=== PATIENT | male | born 1950 | race Caucasian/White ===

== ENCOUNTER 2018-01-23 11:10 | Inpatient (IN) | payer MEDICARE, OTHER, SELFPAY ==
[2018-01-23] VITALS (25 sets, daily range): BP systolic 120–159; BP diastolic 65–142; PULSE 99–118; RESP 13–38; TEMP 35.5–36.8; O2SAT 94–98; BMI 36.0; BMI 35.9
--- NOTE | 2018-01-23 11:30 | RAD_ITS ---
STUDY: X-RAY CHEST REASON FOR EXAM: Male, 67 years old. Cough. Extreme shortness of breath. TECHNIQUE: Single AP portable view of the chest. COMPARISON: None. FINDINGS: EKG electrodes are seen. Minimal increased markings in the right midlung most likely representing scarring. Minimal increased markings at the left lung base. There is no demonstrated pleural abnormality. There is moderate cardiac enlargement. Normal mediastinum and gilma. Normal visualized pulmonary arteries. Normal visualized aortic arch and descending thoracic aorta. Normal visualized thoracic spine. Multiple healed left rib fractures with deformity. There is no demonstrated abnormality of the visualized soft tissue structures of the upper abdomen. RAD/Chest 1 View (Portable) IMPRESSION: Cardiomegaly. No acute abnormality is seen. Electronically Signed: Osmany Gill MD at 12:35 EST Tel [phone], Service support ,
--- NOTE | 2018-01-23 11:30 | EKG12_ITS ---
Test Reason : SOB Blood Pressure : / mmHG Vent. Rate : 095 BPM Atrial Rate : 095 BPM P-R Int : 192 ms QRS Dur : 198 ms QT Int : 434 ms P-R-T Axes : 061 108 -05 degrees QTc Int : 545 ms Sinus rhythm with occasional Premature ventricular complexes Right bundle branch block T wave abnormality, consider inferior ischemia Abnormal ECG Confirmed by HAYLEY IRAHETA, CAR ([id number]), video effects editor EMMANUEL SANTOS ([id number] on 01/24/2018 2:24:38 PM Referred By: MALORIE/FRANKLIN Confirmed By:CAR HARDY MD
--- NOTE | 2018-01-23 11:37 | ED.DCSUM_ITS ---
- ER Visit Summary Date of Service: 01/23/18 Chief Complaint: Shortness of breath History of Present Illness: The patient is a 67 M with increasing shortness of breath. He was diagnosed with pneumonia about a week ago. He was prescribed Levaquin. He is not improving, and in fact he feels that his breathing is getting worse. He denies any chest pain or fevers. Denies any history of PE or heart disease. Physical Examination: Blood pressure 154/76. Heart rate 99 and respiratory rate 38. Pulse ox 95% on nasal cannula. Afebrile. Mild respiratory distress. The patient feels better sitting upright. No tripoding or pursed lip breathing. Lungs show diminished sounds throughout all [place]. Heart regular. Abdomen soft. Skin appears normal. Test Results: EKG, chest x-ray, sepsis labs pending. Emergency Department Course and Treatment: Patient was treated with aerosols, fluids, and Solu-Medrol while awaiting results. EKG showed a wide complex rhythm. Chest x-ray and labs all were fairly unremarkable. There was some delay in receiving the metabolic panel. He really had no improvement in his breathing after breathing treatments. His metabolic panel came back with a potassium of 7.9, BUN of 227, and creatinine of 23. I reevaluated the patient. It seems that the breathing treatments had narrowed his QRS complex. He was treated with calcium, insulin, dextrose, and Kayexalate. I spoke with the electronics engineering manager, the machine gunner, and hospitalist tactical air defense controller. The patient will be admitted to the ICU. We will continue to monitor. At the request of the hospitalist, ABG is pending. Treatment Plan: As above Disposition: Admission to ICU Impression: 1. Hyperkalemia 2. Acute kidney injury This note was generated with Within3ation software. It may contain incorrect words, spelling, and punctuation that were not noted in review of the chart prior to signing ED Disposition - Plan for ED Patient: Chief Complaint: Shortness of Breath
[2018-01-23] MEDS: Ipratropium/Albuterol Sulfate 3 ML AMPUL.NEB INHALATION (11:50)
[2018-01-23] MEDS: MethylPREDNISolone 125 MG/2 ML Vial IV (11:52)
[2018-01-23] MEDS: Albuterol 2.5 MG/3 ML VIAL.NEB. INHALATION (11:58)
[2018-01-23 13:05] LABS: International Normalized Ratio 1.4; Prothrombin Time (Protime)PT. 16.5 SECONDS (11.7-14.9)
[2018-01-23 13:06] LABS: Partial Thromboplast Time 34.3 Seconds (24.1-36.2)
[2018-01-23 13:09] LABS: Absolute Lymphocyte Count 0.54 X10^3/ul (0.83-4.51); Absolute Neutrophil Count 11.9 X10^3/uL (2.0-7.7); Basophil# 0.03 X10^3/uL; Basophil% 0.2 % (0-1); Hematocrit 38.6 % (40-54); Hemoglobin 13.3 g/dl (13.0-16.5); Lymphocyte # 0.54 X10^3/ul (4.0); Lymphocyte % 4.1 % (19-41); Mean Corp Hgb Conc 34.5 g/gl (32-36); Mean Corpuscular Volume 87.1 fL (80-94); Mean Platelet Vol. 9.9 fl (6.2-12.0); Monocyte# 0.46 X10^3/uL; Monocyte% 3.5 % (0-10); Neutrophil # 11.91 X10^3/uL (2.7-7.7); Neutrophil % 91.2 % (47-70); Platelet Count 329 K/mm3 (150-450); RBC Distribution Width CV 13.5 % (11.6-14.6); RBC Distribution Width SD 43.1 fl (35.1-43.9); Red Blood Count 4.43 M/mm3 (4.6-6.2); White Blood Count 13.1 K/mm3 (4.4-11.0)
[2018-01-23 13:10] LABS: Differential Indicated SCAN CRITERIA MET; POSITIVE COUNT NO; POSITIVE DIFFERENTIAL YES; POSITIVE MORPHOLOGY NO
[2018-01-23 13:15] LABS: Lactic Acid 0.8 mmol/L (0.4-2.0)
--- NOTE | 2018-01-23 13:35 | ED.RN ---
LAB CALLED RESULT OF POTASSIUM 7.9, CO2 9, BUN 227, CRE 23.4, PHYSICIAN NOTIFIED
[2018-01-23 13:36] LABS: ALB/GLOB Ratio 0.7 RATIO (0.9-2.4); AST(SGOT) 24 U/L (15-37); Alanine Aminotransfer ALT/SGPT 26 U/L (16-61); Albumin, Serum 3.2 g/dL (3.2-5.0); Alkaline Phosphatase 90 U/L (45-117); Anion Gap 30 (5-15); BUN 227 mg/dL (7-18); BUN/Creat Ratio 9.7 RATIO (10-20); Calcium,Total 8.2 mg/dL (8.5-10.1); Chloride 96 mmol/L (98-107); EST Glomerular Filtration Rate 2 mL/min (>60); Est Glom Filt Rate - Afr Amer 3 mL/min (>60); Estimated Creatinine Clearance 2.79 ml/min; Globulin 4.7 g/dL (2.2-4.2); Glucose 90 mg/dL (74-106); Potassium 7.9 mmol/L (3.5-5.1); Protein, Total 7.9 g/dL (6.4-8.2); Sodium Level 135 mmol/L (136-145)
[2018-01-23 13:43] LABS: Platelet Estimate ADEQUATE (ADEQ)
[2018-01-23 13:44] LABS: Red Cell Morphology NORM C+C NORMAL (NORM C&C)
--- NOTE | 2018-01-23 13:51 | PCM.HP.STD ---
Problem List (1) Acute retention of urine Status: Acute (2) Metabolic acidosis Status: Acute (3) JEAN (acute kidney injury) Status: Acute (4) Hyperkalemia Status: Acute History of Present Illness Date of Admission: 01/23/18 Chief Complaint: Shortness of breath - 2 weeks The patient is a 67 year old M with no significant past medical history who comes in with complaints of feeling unwell ongoing for 2 weeks. History was taken from the patient's and the patient himself. Patient started feeling unwell 2 weeks prior, was diagnosed with UTI and started on Levaquin. He followed up 6 days ago to the urgent care center, and was diagnosed with pneumonia and continued on Levaquin. Patient went to see his white mixing operator, Dr. Vielka Nails with complaints of shortness of breath and was asked to come to the ED. In the ED, his vitals show temperature of 97F, blood pressure 154/76, respiratory rate was 38, heart rate was 99, he was saturating 95% on room air. Blood investigation showed a white cell count of 13.1, Hb of 13.3, platelets of 329, INR is 1.4, and was 135, potassium 7.9, chloride 96, bicarbonate 9, BUN 227, creatinine 23.4 lactic acid 0.8, glucose 90. ABG showed pH of 7.13, P O2 of 97, PCO2 was 23.4, bicarbonate was 7.7. Chest X-ray showed no acute cardiopulmonary process. 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, traumatic brain injury Lives: Spouse/ Significant Other Smoking Status: Never smoker Tobacco Use: Non-smoker Alcohol: None Drugs: None - *Family History Paternal History Items: Pulmonary Disease - emphysema Maternal History Items: No pertinent history Review of Systems Constitutional: Denies: Anorexia, Chills, Fever, Night Sweats, Malaise, Weakness, Weight Change Eyes: Denies: Blurred vision, Cataracts, Conjunctivae Inflammation HEENT: Denies: Difficulty Hearing, Difficulty Swallowing, Head Aches, Hearing Changes, Sinus Congestion, Sinus Drainage Cardiovascular: Reports: Edema, Orthopnea, Paroxysmal Noc. Dyspnea. Denies: Chest Pain, Claudication, Light Headedness, Palpitations Respiratory: Reports: Shortness of Breath, Shortness of breath at rest, Shortness of breath upon exertion. Denies: Cough, Sputum production Gastrointestinal: Denies: Abdominal Pain, Constipation, Hematemesis, Nausea, Vomiting Genitourinary: Denies: Dysuria, Frequency, Incontinence Musculoskeletal: Denies: Joint Pain, Joint stiffness, Joint Tenderness Skin: Denies: Dryness, Jaundice, Pruritis, Rash, Wounds Neurological: Denies: Numbness, Tingling, Focal weakness Psychiatric: Denies: Anxiety, Depression, Homicidal Ideations, Suicidal Ideations Hematologic/ Lymphatic: Denies: Easy Bruising, Easy Bleeding VTE Information - Inpt Only VTE Present on Admission: No VTE Pharm Prophylaxis ordered?: Yes Patient Problems: Active and Suspected Problems JEAN (acute kidney injury) (Acute) Hyperkalemia (Acute) Acute retention of urine (Acute) Metabolic acidosis (Acute) - Physical Exam General: Alert, Oriented x3, Cooperative, - - in moderate respiratory distress, not pale, obese HEENT: Atraumatic, PERRLA, EOMI, Normocephalic Oral: Moist Mucosa Neck: Supple Lungs: Normal air movement, No wheeze, No rales, Diminished - at the lung bases Cardiovascular: Regular rate, Regular Rhythm, Normal S1, Normal S2, No murmurs Abdomen: Bowel Sounds Present, Soft, Non Tender, Non-Distended, Obese, - - edema of anterior abdominal wal, firm to touch bit not tender Extremities: Edema - bilateral +1 edema Skin: No rashes Musculoskeletal: No Tenderness to Palpation of Joints or Extremities Lymphatic: No Cervical, Supraclavicular, or Inguinal Adenopathy Neurological: Cranial nerves II-XII grossly intact, Neuro grossly intact Psych/Mental Status: Normal Affect, Appropriate Vital Signs Temp Pulse Resp BP Pulse Ox 97.0 F L 104 H 22 H 155/142 H 98 01/23/18 11:11 01/23/18 12:19 01/23/18 12:19 01/23/18 12:19 01/23/18 12:19 Oxygen Flow Rate 2 Oxygen Delivery Method Room Air Weight: 104.326 kg Body Mass Index (BMI) 36.0 Microbiology Past 72 Hours 01/23/18 12:00 Influenza Types A,B Direct FA (MADDIE) - Final Mucosa - Nose Laboratory Tests Past 24 Hrs 01/23/18 01/23/18 01/23/18 12:24 12:24 12:24 WBC 13.1 H RBC 4.43 L Hgb 13.3 Hct 38.6 L MCV 87.1 MCH 30.0 MCHC 34.5 RDW 13.5 RDW Differential 43.1 Plt Count 329 MPV 9.9 Immature Gran % (Auto) 1.000 H Neut % (Auto) 91.2 H Lymph % (Auto) 4.1 L Kane % (Auto) 3.5 Eos % (Auto) 0.0 Baso % (Auto) 0.2 Absolute Neuts (auto) 11.9 H Absolute Lymphs (auto) 0.54 L Total Counted Not Reportable Platelet Estimate ADEQUATE RBC Morphology NORM C+C PT 16.5 H INR 1.4 APTT 34.3 Sodium 135 L Potassium 7.9 H* Chloride 96 L Carbon Dioxide 9.0 L* Anion Gap 30 H BUN 227 H* Creatinine 23.40 H* Estim Creat Clear Calc 2.79 Est GFR (MDRD) Af Amer 3 L Est GFR (MDRD) Non-Af 2 L BUN/Creatinine Ratio 9.7 L Glucose 90 Lactic Acid Calcium 8.2 L Total Bilirubin 0.50 AST 24 ALT 26 Alkaline Phosphatase 90 Troponin I < 0.02 Total Protein 7.9 Albumin 3.2 Globulin 4.7 H Albumin/Globulin Ratio 0.7 L 01/23/18 12:24 WBC RBC Hgb Hct MCV MCH MCHC RDW RDW Differential Plt Count MPV Immature Gran % (Auto) Neut % (Auto) Lymph % (Auto) Kane % (Auto) Eos % (Auto) Baso % (Auto) Absolute Neuts (auto) Absolute Lymphs (auto) Total Counted Platelet Estimate RBC Morphology PT INR APTT Sodium Potassium Chloride Carbon Dioxide Anion Gap BUN Creatinine Estim Creat Clear Calc Est GFR (MDRD) Af Amer Est GFR (MDRD) Non-Af BUN/Creatinine Ratio Glucose Lactic Acid 0.8 Calcium Total Bilirubin AST ALT Alkaline Phosphatase Troponin I Total Protein Albumin Globulin Albumin/Globulin Ratio Assessment/Plan Active and Suspected Problems JEAN (acute kidney injury) (Acute) Hyperkalemia (Acute) Acute retention of urine (Acute) Metabolic acidosis (Acute) 67 year old M with no significant past medical history who comes in with complaints of feeling unwell ongoing for 2 weeks. History was taken from the patient's and the patient himself. He has recently been treated for pneumonia and UTI with Levaquin. 1. Acute kidney injury in a patient with previous normal renal function, likely secondary to acute on chronic urine retention, BUN is 227, creatinine is 23.4, catheter drain more than 1.5 L of urine Plan: Admit to ICU, Mckeon catheter, nephrology consult, interior assemblies developer prover consult, ultrasound of the kidney and bladder, repeat blood work later in the day and in a.m., IV fluids, strict I's and O's 2. Hyperkalemia secondary to JEAN, admitting potassium was 7.9, EKG showed widened QRS complexes, treated in the ED with gluconate, NovoLog insulin 5 units ?1, breathing treatment isolated, repeat blood work in a couple of hours 3. Metabolic acidosis, severe, secondary to acute renal failure, started on bicarbonate drip by nephrology, repeat BMP in 1 hour 4. Hypertension, uncontrolled, likely secondary to JEAN, will continue to monitor with hydralazine as needed 5. BPH, on Flomax, will continue at Flomax 0.4 mg p.o. twice daily, urology consult for post-renal JEAN 6. Leucocytosis, likely reactive, will monitor with repeat CBCD in am. 7. Acute hypoxic respiratory insufficiency secondary to JEAN, not on oxygen at home, continue oxygen per protocol, breathing treatments, incentive spirometer, wean off for SPO2 more than 94% 8. DVT PPx - Heparin SC 9. GI ppx - famotidine 10. Code status -More than 18 minutes was spent with the patient and his discussing advanced directives and the differences between full code, DNR CCA and DNR CC, patient could not make up his mind. He states he has advanced directive present but does not remember what he had on file in his doctor's office. He will let the staff in the ICU know what he decides on Code Visit Inpatient E&M: 80561 Init Hosp L3 Procedures: 91295 Advncd Care Plan 30 Min
[2018-01-23] MEDS: Dextrose 50%-Water 25 GM/50 ML DISP.SYRIN IV (13:54)
[2018-01-23] MEDS: Sodium Polystyrene Sulfonate 15 GM/60 ML UDC 45 GM PO (13:54)
--- NOTE | 2018-01-23 14:38 | CON.PCM_ITS ---
Problem List (1) JEAN (acute kidney injury) Status: Acute (2) Hyperkalemia Status: Acute Consultation - Renal 01/23/18 PCP/ Referring MD: Requesting physician: Dr Angela Primary care physician: Terry Peralta MD Reason for Consultation:: JEAN - History of Present Illness History of Present Illness: The patient is a 67 year old M who presented to hospital with c/o dyspnea. apparently he went to [facility] twice in last 2 weeks. Initial visit was for UTI like symptoms and second visit was for respiratory issues. was given abx (levaquin as per Dr Angela). presented to ER today with progressively worsening dyspnea. CXR looks ok BMP shows advanced azotemia, severe hyperkalemia, severe acidosis no prior kidney disease. some dysuria before but nothing now says has been voiding ok - Allergies Allergies: Allergies No Known Allergies Allergy (Verified 01/23/18 11:14) - Social History Smoking Status: Never smoker Review of Systems Constitutional: Denies: Chills, Fever, Weight Change HEENT: Denies: Head Aches, Sinus Congestion, Sinus Drainage Cardiovascular: Denies: Chest Pain, Palpitations Respiratory: Reports: Shortness of Breath, Shortness of breath at rest. Denies : Cough, Sputum production Gastrointestinal: Denies: Abdominal Pain, Nausea, Vomiting Genitourinary: Denies: Dysuria Musculoskeletal: Denies: Joint Pain, Joint Tenderness Skin: Denies: Rash, Wounds Neurological: Denies: Numbness, Tingling, Focal weakness Psychiatric: Denies: Anxiety, Depression, Homicidal Ideations, Suicidal Ideations Hematologic/ Lymphatic: Denies: Easy Bruising, Easy Bleeding Patient Problems: Active and Suspected Problems JEAN (acute kidney injury) (Acute) Hyperkalemia (Acute) - Physical Exam General: Alert, Oriented x3, Cooperative HEENT: Atraumatic, PERRLA, EOMI, Normocephalic Neck: Supple, No JVD, Negative Carotid Bruits Lungs: Clear to auscultation, Normal air movement Cardiovascular: Regular rate, No murmurs Abdomen: Bowel Sounds Present, Soft, Non Tender Extremities: No edema, Capillary Refill Less than 3 Seconds Skin: No rashes, No breakdown Musculoskeletal: No Tenderness to Palpation of Joints or Extremities Neurological: Cranial nerves II-XII grossly intact Psych/Mental Status: Normal Affect, Appropriate Vital Signs Temp Pulse Resp BP Pulse Ox 98.2 F 109 H 28 H 145/71 H 97 01/23/18 14:14 01/23/18 14:14 01/23/18 14:14 01/23/18 14:14 01/23/18 14:14 Oxygen Flow Rate 3 Oxygen Delivery Method Nasal Cannula Assessment/Plan Active and Suspected Problems JEAN (acute kidney injury) (Acute) Hyperkalemia (Acute) JEAN. presumbaly normal baseline creatinine. will try to get previous labs. has severe azotemia, acidosis and hyperkalemia Mckeon catheter now if no significant return will plan for dialysis today IV sodium bicarbonate push 2 amp start IV bicarbonate drip d/w family d/w ER attending and Dr Silveira
[2018-01-23 15:06] LABS: Allen Test POS; Base Excess -21 mmol/L (-2 to +2); Bicarbonate 7.7 mmol/L (22-26); Blood Gas Specimen Type ART; O2 Delivery Device Nasal Can; PO2 113 mmHG (75-100); SITE R Radial; SO2 97 % (95-99); Time Given 1445; Total Carbon Dioxide 8 mmol/L; pCO2 23.4 mmHg (35-45); pH 7.13 (7.35-7.45)
--- NOTE | 2018-01-23 15:10 | US_ITS ---
STUDY: RENAL ULTRASOUND - COMPLETE REASON FOR EXAM: Male, 67 years old. Acute renal failure. TECHNIQUE: Ultrasound evaluation of the kidneys was performed with real-time and static bella-scale imaging. COMPARISON: None. FINDINGS: RIGHT KIDNEY: Normal location of the right kidney, which is normal in size. The right kidney measures 12.1 cm. There is a normal cortex of the right kidney. The renal cortex measures 1.8 cm. There is no right renal mass or cyst. There are no right renal calculi. There is no right hydronephrosis. DISTAL RIGHT URETER: There is non-visualization of the distal right ureter. There is no demonstrated right ureterovesical junction calculus. There is no demonstrated right ureteral jet. LEFT KIDNEY: Normal location of the left kidney, which is mildly enlarged in size. The left kidney measures 13.2 cm. There is a normal cortex of the left kidney. The renal cortex measures 2.1 cm. There is no left renal mass or cyst. There are no left renal calculi. There is no left hydronephrosis. DISTAL LEFT URETER: There is non-visualization of the distal left ureter. There is no demonstrated left ureterovesical junction calculus. There is no demonstrated left ureteral jet. BLADDER: The urinary bladder is collapsed about a Mckeon catheter. US/Kidney and Bladder IMPRESSION: Normal ultrasound of the kidneys. Electronically Signed: John Hi DO at 19:06 EST Tel [phone], Service support ,
[2018-01-23] MEDS: Sodium Bicarbonate 8.4% 50 ML Syringe 100 MEQ IV (15:16)
[2018-01-23] MEDS: HYDROmorphone 1 MG/ML Syringe 0.5 MG IV (16:14)
[2018-01-23] MEDS: LORazepam 1 MG Tablet PO (16:15)
[2018-01-23 16:38] LABS: M R Staph aureus DNA By PCR Negative (Negative); Probe Check PASS; Specimen Processing Control PASS
[2018-01-23 17:26] LABS: Anion Gap 23 (5-15); BUN 210 mg/dL (7-18); BUN/Creat Ratio 10.9 RATIO (10-20); Calcium,Total 8.7 mg/dL (8.5-10.1); Chloride 105 mmol/L (98-107); EST Glomerular Filtration Rate 3 mL/min (>60); Est Glom Filt Rate - Afr Amer 3 mL/min (>60); Estimated Creatinine Clearance 3.38 ml/min; Glucose 136 mg/dL (74-106); Potassium 5.7 mmol/L (3.5-5.1); Sodium Level 141 mmol/L (136-145)
--- NOTE | 2018-01-23 18:39 | PCM.CONS.U ---
Problem List (1) Urinary retention Status: Acute (2) JEAN (acute kidney injury) Status: Acute Reason for Consult Date of Consultation: 01/23/18 Reason for Consultation: Urinary retention and acute renal failure from retention. History of Present Illness: The patient is a 67 year old and male admitted to the hospital and was found to have retention of urine Mckeon catheter was placed and over a liter of urine returned. His creatinine was extremely high at 23 now is down to 19. Hopefully his creatinine will continue to improve but he has fairly good diuresis at this point. He denies having any difficulties with going to the bathroom. Denies have any gross hematuria. Denies having prostate cancer. He is a fairly poor historian as well. 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, traumatic brain injury Psychiatric History: No pertinent psych hx Lives: Spouse/ Significant Other Smoking Status: Never smoker Tobacco Use: Non-smoker Alcohol: None Drugs: None - *Family History Paternal History Items: Pulmonary Disease - emphysema Maternal History Items: No pertinent history Review of Systems Constitutional: Denies: Chills, Fever, Weight Change HEENT: Denies: Head Aches, Sinus Congestion, Sinus Drainage Cardiovascular: Denies: Chest Pain, Palpitations Respiratory: Denies: Cough, Shortness of breath at rest, Sputum production Gastrointestinal: Denies: Abdominal Pain, Nausea, Vomiting Genitourinary: Reports: Dysuria, Retention Musculoskeletal: Denies: Joint Pain, Joint Tenderness Skin: Denies: Rash, Wounds Neurological: Denies: Numbness, Tingling, Focal weakness Psychiatric: Denies: Anxiety, Depression, Homicidal Ideations, Suicidal Ideations Hematologic/ Lymphatic: Denies: Easy Bruising, Easy Bleeding Physical Exam - Physical Exam Vital Signs Temp 96.7 F L 01/23/18 17:00 Pulse 116 H 01/23/18 17:00 Resp 24 H 01/23/18 17:28 BP 151/84 H 01/23/18 17:00 Pulse Ox 96 01/23/18 17:28 Intake & Output 01/21/18 01/22/18 01/23/18 23:59 23:59 23:59 Intake Total 227 / 227 Output Total 4500 / 4500 Balance -4273 / -4273 Weight: 104 kg Intake: IV fluid/meds 227 / 227 Output: Urine 4500 / 4500 General: Alert, Oriented x3 HEENT: Atraumatic Oral: Moist Mucosa Neck: Supple Lungs: Clear to auscultation Cardiovascular: Regular rate, Regular Rhythm Abdomen: Bowel Sounds Present, Soft Rectal: - - Very large prostate on exam no hard nodules Prostate: 60gm Testicle: Right Normal, Left Normal Epididymis: Right Normal, Left Normal Scrotum: No lesions Penis: Circumcised Extremities: No clubbing, No cyanosis, No edema Skin: No rashes Musculoskeletal: No Tenderness to Palpation of Joints or Extremities Lymphatic: No Cervical, Supraclavicular, or Inguinal Adenopathy Laboratory Tests Past 24 Hrs 01/23/18 01/23/18 01/23/18 14:54 15:15 16:30 Specimen Type ART Sample Site R Radial pH 7.13 L* Bicarbonate Actual 7.7 L POC Total CO2 8 Base Excess -21 L O2 Saturation 97 ABG pCO2 23.4 L ABG pO2 113 H Dong Test POS O2 Delivery Device Nasal Can Liter Flow 3.0 Blood Gas Notified Whom [facility] Blood Gas Notified Time 1445 Sodium 141 Potassium 5.7 H Chloride 105 Carbon Dioxide 13.0 L Anion Gap 23 H BUN 210 H* Creatinine 19.30 H* Estim Creat Clear Calc 3.38 Est GFR (MDRD) Af Amer 3 L Est GFR (MDRD) Non-Af 3 L BUN/Creatinine Ratio 10.9 Glucose 136 H Calcium 8.7 MRSA (PCR) Negative Assessment/Plan Active and Suspected Problems JEAN (acute kidney injury) (Acute) Hyperkalemia (Acute) Acute retention of urine (Acute) Metabolic acidosis (Acute) Urinary retention (Acute) 67-year-old male who presented to the hospital in retention of urine with acute kidney injury and renal insufficiency. He is can have an ultrasound done of his kidneys most likely will demonstrate hydronephrosis he will need to go home with a catheter for continued drainage. He can follow-up in the office with me after discharge I will continue to follow him while in the hospital as well. Hopefully his kidney function will improve difficult to tell where his creatinine will settle down at. Because of the retention is unclear at this point he will need further workup as an outpatient with a cystoscopy and possible urodynamic evaluation of his bladder. Agree with renal ultrasound for now and continue catheter drainage of the bladder. We will hold off on checking a PSA for now given her recent catheter could be artificially elevated.
[2018-01-23] MEDS: 0.9% NaCl Peripheral Flush Adult/Peds IV ×2 (19:15→21:20)
[2018-01-23 21:18] LABS: Urine Sodium 59 mmol/L (Not Establ.)
[2018-01-23] MEDS: Menthol/Lanolin/Calamine/Znox 113 GM Tube 1 APPLIC TOPICAL (21:18)
[2018-01-23] MEDS: Famotidine 20 MG Tablet PO (21:19)
[2018-01-23] MEDS: Tamsulosin HCl 0.4 MG Capsule PO (21:19)
[2018-01-23 21:54] LABS: Anion Gap 15 (5-15); BUN 160 mg/dL (7-18); BUN/Creat Ratio 13.7 RATIO (10-20); Calcium,Total 8.7 mg/dL (8.5-10.1); Chloride 110 mmol/L (98-107); EST Glomerular Filtration Rate 5 mL/min (>60); Est Glom Filt Rate - Afr Amer 6 mL/min (>60); Estimated Creatinine Clearance 5.57 ml/min; Glucose 201 mg/dL (74-106); Potassium 3.8 mmol/L (3.5-5.1); Sodium Level 147 mmol/L (136-145)
[2018-01-23] MEDS: 0.45% Normal Saline 1,000 ML 250 ML IV (22:22)
[2018-01-24] VITALS (22 sets, daily range): BP systolic 132–157; BP diastolic 67–104; PULSE 90–106; RESP 12–19; TEMP 36.4–36.7; O2SAT 94–98
[2018-01-24] MEDS: 0.45% Normal Saline 1,000 ML 250 ML IV ×5 (02:53→21:41)
[2018-01-24 04:28] LABS: Hematocrit 38.3 % (40-54); Hemoglobin 13.4 g/dl (13.0-16.5); Mean Corpuscular Hgb 29.8 pg (27.0-32.0); Mean Corpuscular Volume 85.1 fL (80-94); Mean Platelet Vol. 9.7 fl (6.2-12.0); Platelet Count 333 K/mm3 (150-450); RBC Distribution Width CV 13.5 % (11.6-14.6); RBC Distribution Width SD 41.8 fl (35.1-43.9); White Blood Count 5.9 K/mm3 (4.4-11.0)
[2018-01-24 04:29] LABS: Scan Indicated on CBC? Y/N NO
[2018-01-24 04:35] LABS: Anion Gap 13 (5-15); BUN 110 mg/dL (7-18); BUN/Creat Ratio 15.3 RATIO (10-20); Calcium,Total 8.8 mg/dL (8.5-10.1); Chloride 111 mmol/L (98-107); Creatinine, Serum 7.17 mg/dL (0.70-1.30); EST Glomerular Filtration Rate 8 mL/min (>60); Est Glom Filt Rate - Afr Amer 10 mL/min (>60); Estimated Creatinine Clearance 9.09 ml/min; Glucose 121 mg/dL (74-106); Potassium 3.7 mmol/L (3.5-5.1); Sodium Level 148 mmol/L (136-145)
[2018-01-24] MEDS: Menthol/Lanolin/Calamine/Znox 113 GM Tube 1 APPLIC TOPICAL ×3 (05:33→21:42)
--- NOTE | 2018-01-24 06:21 | PCM.CON.CC ---
Reason for Consult Date of Consultation: 01/24/18 Reason for Consultation: Acute kidney injury History of Present Illness: The patient is a 67-year-old male, with a history as outlined below, who presented to the emergency department on January 23 with complaints of progressive shortness of breath, having just been diagnosed with pneumonia 1 week prior. The patient was reportedly being treated with Levaquin. The patient has not had any prior reported kidney issues. On presentation to the emergency department, the patient was noted to be afebrile, hemodynamically stable and initially maintaining oxygen saturations on room air. He was, nonetheless, notably tachypneic. Initial laboratory evaluation revealed elevated white blood cell count to 13,000. Coagulation profile was within normal limits. Chemistry profile revealed an elevated potassium to 7.9 with a serum bicarbonate level of 9. Anion gap was increased to 30. The patient had an elevated BUN and creatinine to 227 and 23.4, respectively. Serum lactate was within normal limits. Plain film chest x-ray revealed cardiomegaly without an acute infiltrative process identified. Due to the patient's acute kidney injury, electrolytic disturbances and metabolic derangements, nephrology was emergently consulted. A Mckeon catheter was placed and a bicarbonate drip was started. The patient was subsequently transferred to the medical intensive care unit for ongoing management. 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, traumatic brain injury Psychiatric History: No pertinent psych hx Lives: Spouse/ Significant Other Smoking Status: Never smoker Tobacco Use: Non-smoker Alcohol: None Drugs: None - *Family History Paternal History Items: Pulmonary Disease - emphysema Maternal History Items: No pertinent history Review of Systems Constitutional: Denies: Chills, Fever, Night Sweats Eyes: Denies: Blurred vision, Double vision HEENT: Denies: Head Aches, Sinus Congestion, Sinus Drainage Cardiovascular: Denies: Chest Pain, Palpitations Respiratory: Reports: Shortness of Breath Gastrointestinal: Reports: Abdominal Pain. Denies: Nausea, Vomiting Genitourinary: Reports: Frequency Musculoskeletal: Reports: Back Pain Skin: Denies: Rash, Wounds Neurological: Denies: Numbness, Tingling, Focal weakness Psychiatric: Denies: Anxiety, Depression, Homicidal Ideations, Suicidal Ideations Hematologic/ Lymphatic: Denies: Easy Bruising, Easy Bleeding Patient Problems: Active and Suspected Problems JEAN (acute kidney injury) (Acute) Hyperkalemia (Acute) Acute retention of urine (Acute) Metabolic acidosis (Acute) Urinary retention (Acute) Objective: The patient's most recent lab work, culture data and imaging studies have all been personally reviewed. Renal ultrasound dated January 23 was grossly within normal limits. Rapid influenza screen was negative. Blood cultures are pending. - Physical Exam General: Alert, Cooperative, No apparent distress HEENT: Atraumatic, PERRLA, Normocephalic Oral: Moist Mucosa, No Gingival or Mucosal Lesions/ Ulcerations Neck: Supple, No Nodes, Trachea Midline Lungs: No rhonchi, No wheeze, No rales, Diminished Cardiovascular: Regular rate, Regular Rhythm, Normal S1, Normal S2, No murmurs Abdomen: Bowel Sounds Present, Soft, Non Tender Extremities: No clubbing, No cyanosis, Edema Skin: No rashes, No breakdown Musculoskeletal: No Tenderness to Palpation of Joints or Extremities, No Muscle Wasting Lymphatic: No Cervical, Supraclavicular, or Inguinal Adenopathy Neurological: Neuro grossly intact Psych/Mental Status: Normal Affect, Appropriate Vital Signs Temp Pulse Resp BP Pulse Ox 97.8 F 99 13 149/79 H 94 01/24/18 06:00 01/24/18 06:00 01/24/18 06:00 01/24/18 06:00 01/24/18 06:00 Oxygen Flow Rate 98 Oxygen Delivery Method Room Air Weight: 214 lb 1.102 oz Body Mass Index (BMI) 35.9 Intake and Output for Last 24 Hours 01/22/18 01/23/18 01/24/18 23:59 23:59 23:59 Intake Total 2275 / 2275 1576 / 1576 Output Total 8850 / 8850 3250 / 3250 Balance -6575 / -6575 -1674 / -1674 Laboratory Tests Past 24 Hrs 02/27/18 02/27/18 02/27/18 14:54 15:15 16:30 WBC RBC Hgb Hct MCV MCH MCHC RDW RDW Differential Plt Count MPV Specimen Type ART Sample Site R Radial pH 7.13 L* Bicarbonate Actual 7.7 L POC Total CO2 8 Base Excess -21 L O2 Saturation 97 ABG pCO2 23.4 L ABG pO2 113 H Dong Test POS O2 Delivery Device Nasal Can Liter Flow 3.0 Blood Gas Notified Whom [facility] Blood Gas Notified Time 1445 Sodium 141 Potassium 5.7 H Chloride 105 Carbon Dioxide 13.0 L Anion Gap 23 H BUN 210 H* Creatinine 19.30 H* Estim Creat Clear Calc 3.38 Est GFR (MDRD) Af Amer 3 L Est GFR (MDRD) Non-Af 3 L BUN/Creatinine Ratio 10.9 Glucose 136 H Calcium 8.7 Ur Random Sodium Urine Creatinine MRSA (PCR) Negative 01/23/18 01/23/18 01/23/18 19:45 19:45 21:10 WBC RBC Hgb Hct MCV MCH MCHC RDW RDW Differential Plt Count MPV Specimen Type Sample Site pH Bicarbonate Actual POC Total CO2 Base Excess O2 Saturation ABG pCO2 ABG pO2 Dong Test O2 Delivery Device Liter Flow Blood Gas Notified Whom Blood Gas Notified Time Sodium 147 H Potassium 3.8 Chloride 110 H Carbon Dioxide 22.0 Anion Gap 15 BUN 160 H* Creatinine 11.70 H* Estim Creat Clear Calc 5.57 Est GFR (MDRD) Af Amer 6 L Est GFR (MDRD) Non-Af 5 L BUN/Creatinine Ratio 13.7 Glucose 201 H Calcium 8.7 Ur Random Sodium 59 Urine Creatinine 104.00 MRSA (PCR) 01/24/18 01/24/18 04:05 04:05 WBC 5.9 RBC 4.50 L Hgb 13.4 Hct 38.3 L MCV 85.1 MCH 29.8 MCHC 35.0 RDW 13.5 RDW Differential 41.8 Plt Count 333 MPV 9.7 Specimen Type Sample Site pH Bicarbonate Actual POC Total CO2 Base Excess O2 Saturation ABG pCO2 ABG pO2 Dong Test O2 Delivery Device Liter Flow Blood Gas Notified Whom Blood Gas Notified Time Sodium 148 H Potassium 3.7 Chloride 111 H Carbon Dioxide 24.0 Anion Gap 13 BUN 110 H* Creatinine 7.17 H Estim Creat Clear Calc 9.09 Est GFR (MDRD) Af Amer 10 L Est GFR (MDRD) Non-Af 8 L BUN/Creatinine Ratio 15.3 Glucose 121 H Calcium 8.8 Ur Random Sodium Urine Creatinine MRSA (PCR) Clinical Impression(s) from Imaging Studies Chest X-Ray 01/23/18 11:30 IMPRESSION: Cardiomegaly. No acute abnormality is seen. Electronically Signed: Osmany Gill MD at 12:35 EST Tel [phone], Service support , Renal Ultrasound 01/23/18 15:10 IMPRESSION: Normal ultrasound of the kidneys. Electronically Signed: Jhon Hi DO at 19:06 EST Tel [phone], Service support , Assessment/Plan Active and Suspected Problems JEAN (acute kidney injury) (Acute) Hyperkalemia (Acute) Acute retention of urine (Acute) Metabolic acidosis (Acute) Urinary retention (Acute) RECOMMENDATIONS: 1. Primary management per nephrology and urology recommendations. 2. CT abdomen/pelvis stone protocol today. 3. The patient will likely be discharged home with a Mckeon catheter in place. 4. Recommend changing the patient supplemental IV fluids to D5W, given emerging hypernatremia and hyperchloremia. 5. The patient is medically stable for transfer out of the intensive care unit. IMPRESSIONS: 1. Acute kidney injury, felt to be secondary to obstructive nephropathy The patient's creatinine and urine output have improved. Urology is following. Mckeon catheter remains in place. There are plans for the patient to undergo a CT abdomen/pelvis stone protocol today. Continue IV fluids as ordered. 2. Anion gap metabolic acidosis secondary to renal insufficiency Improved dramatically following Mckeon catheter placement and IV fluid hydration. 3. Hypernatremia/hyperchloremia If supplemental IV fluids are continued, would recommend transitioning to D5W. This note was generated with [employer] dictation software. It may contain incorrect words, spelling, and punctuation that were not noted in checking the note before signing. As there are no further ICU needs, will sign off. Please call with any additional questions. Code Visit Inpatient E&M: 84211 Init Hosp L3
--- NOTE | 2018-01-24 06:54 | PCM.PN.HOSP ---
Patient Problems: Active and Suspected Problems JEAN (acute kidney injury) (Acute) Hyperkalemia (Acute) Acute retention of urine (Acute) Metabolic acidosis (Acute) Urinary retention (Acute) Subjective: Patient overnight with no acute events per self and per nursing staff. He is upright, seated in the bedside chair, notes still having some mild discomfort to bilateral lower back but otherwise feeling improved. Output continues to remain appropriate with May catheter in place. Discussed evaluation with ICU staff this morning and added urinalysis complete as well as urine culture current ongoing workup. Reviewed labs this morning with patient with improvement of renal function. Clinical improvement will transition patient to PCU status which was performed. Patient denies fevers, chills, nausea, emesis, abdominal pain, chest pain or dyspnea. Objective: Physical Examination: General: awake, alert, oriented to person, place, year although conversation abnormal, cooperative, seated upright in the ICU bedside chair, in no apparent distress. Skin: normal color, turgor, no icterus, cyanosis. HEENT: AT/NC, EOMI, PERRLA, MMM. Lungs: CTA bilaterally, moderate effort, mild decrease BL bases, no rales, ronchi or wheezing. Heart: Regular rate and rhythm; no gallop, rub audible. Abdomen: soft, obese, NTTP, ND, normal BS, may catheter in place, decent output. Extremities: no cyanosis, clubbing, mild BL ankle edema. Neurological: patient awake, alert, oriented x 3; cognitive function intact; pupils equally reactive to light and accomodation; cranial nerves II-XII grossly normal, moving all 4 extremities, no focal deficits, strength moderately globally decreased. Psychiatric: affect appears normal, no acute evidence of depressive or anxiety feelings. Vitals/I&O's: Vital Signs Temp Pulse Resp BP Pulse Ox 97.8 F 99 13 149/79 H 94 01/24/18 06:00 01/24/18 06:00 01/24/18 06:00 01/24/18 06:00 01/24/18 06:00 Oxygen Flow Rate 98 Oxygen Delivery Method Room Air Weight: 214 lb 1.102 oz Body Mass Index (BMI) 35.9 Intake and Output for Last 24 Hours 01/22/18 01/23/18 01/24/18 23:59 23:59 23:59 Intake Total 2275 / 2275 1576 / 1576 Output Total 8850 / 8850 3250 / 3250 Balance -6575 / -6575 -1084 / -2832 Laboratory Results 01/23/18 14:54: Specimen Type ART, Sample Site R Radial, pH 7.13 L*, Bicarbonate Actual 7.7 L, POC Total CO2 8, Base Excess -21 L, O2 Saturation 97, ABG pCO2 23.4 L, ABG pO2 113 H, Dong Test POS, O2 Delivery Device Nasal Can, Liter Flow 3.0, Blood Gas Notified Whom REHAN IRAHETA, Blood Gas Notified Time 1445 01/23/18 15:15: MRSA (PCR) Negative 01/23/18 16:30: Sodium 141, Potassium 5.7 H, Chloride 105, Carbon Dioxide 13.0 L, Anion Gap 23 H, BUN 210 H*, Creatinine 19.30 H*, Estim Creat Clear Calc 3.38, Est GFR (MDRD) Af Amer 3 L, Est GFR (MDRD) Non-Af 3 L, BUN/Creatinine Ratio 10.9, Glucose 136 H, Calcium 8.7 01/23/18 19:45: Urine Creatinine 104.00 01/23/18 19:45: Ur Random Sodium 59 01/23/18 21:10: Sodium 147 H, Potassium 3.8, Chloride 110 H, Carbon Dioxide 22.0, Anion Gap 15, BUN 160 H*, Creatinine 11.70 H*, Estim Creat Clear Calc 5.57, Est GFR (MDRD) Af Amer 6 L, Est GFR (MDRD) Non-Af 5 L, BUN/Creatinine Ratio 13.7, Glucose 201 H, Calcium 8.7 01/24/18 04:05: WBC 5.9, RBC 4.50 L, Hgb 13.4, Hct 38.3 L, MCV 85.1, MCH 29.8, MCHC 35.0, RDW 13.5, RDW Differential 41.8, Plt Count 333, MPV 9.7 01/24/18 04:05: Sodium 148 H, Potassium 3.7, Chloride 111 H, Carbon Dioxide 24.0, Anion Gap 13, BUN 110 H*, Creatinine 7.17 H, Estim Creat Clear Calc 9.09, Est GFR (MDRD) Af Amer 10 L, Est GFR (MDRD) Non-Af 8 L, BUN/Creatinine Ratio 15.3, Glucose 121 H, Calcium 8.8 Current Medications Acetaminophen (Tylenol) 650 mg PO Q6H PRN PRN PRN Reason: Mild Pain (1-3)/Temp > 100.7 F Bisacodyl (Dulcolax) 5 mg PO DAILY PRN PRN PRN Reason: Constipation Calamine/Phenol (Calmoseptine Ointment) 1 applic TOPICAL TID [facility] PRN Reason: Protocol Last Admin: 01/24/18 05:33 Dose: 1 applicatio Chlorhexidine Gluconate () 1 each TOPICAL DAILY [facility] Famotidine (Pepcid) 20 mg PO BID [facility] Last Admin: 01/23/18 21:19 Dose: 20 mg Heparin Sodium (Porcine) (Heparin Na) 5,000 unit SC BID [facility] Last Admin: 01/23/18 21:19 Dose: 5,000 units Sodium Chloride () 1,000 mls @ 100 mls/hr IV .Q10H [facility] Last Admin: 01/23/18 16:07 Dose: Not Given Sodium Chloride () 250 mls @ 15 mls/hr IV .[id number] PRN PRN Reason: SALINE FLUSH Sodium Chloride () 250 mls @ 15 mls/hr IV .[id number] PRN PRN Reason: SALINE FLUSH Sodium Chloride () 1,000 mls @ 250 mls/hr IV .Q4H [facility] Last Admin: 01/24/18 02:53 Dose: 250 mls/hr Magnesium Hydroxide (Milk Of Magnesia) 30 ml PO DAILY PRN PRN PRN Reason: Constipation Ondansetron HCl (Zofran) 4 mg IV Q6H PRN PRN PRN Reason: NAUSEA/VOMITING Oxycodone HCl (Oxyir) 5 mg PO Q8H PRN PRN PRN Reason: SEVERE PAIN (6-10/10) Psyllium Hydrophilic Mucilloid (Metamucil) 1 packet PO DAILY PRN PRN PRN Reason: CONSTIPATION Sodium Chloride () 5 - 30 ml IV UD PRN PRN Reason: SALINE FLUSH Last Admin: 01/23/18 21:20 Dose: 10 ml Tamsulosin HCl (Flomax) 0.4 mg PO BID [facility] Last Admin: 01/23/18 21:19 Dose: 0.4 mg Assessment/Plan Active and Suspected Problems JEAN (acute kidney injury) (Acute) Hyperkalemia (Acute) Acute retention of urine (Acute) Metabolic acidosis (Acute) Urinary retention (Acute) The patient is a 67 y/o M w/ PMHx: BPH, HLD who presents to the [facility] ED on 01/23/18 with general malaise with UC evaluation and dx at that time w/ PNA, treated w/ Levaquin but did not improve. (1) Acute kidney injury and RTA secondary to Urinary Retention w/ Azotemia, Metabolic Acidosis and Hyperkalemia: Admission BUN/Cr 227/23.40, prior baseline creatinine unknown but normal per patient. Urology consulted, may catheter placed upon transition to the ICU, 1L UOP following. Nephrology consulted, initiated on IVFs, IV push and drip sodium bicarbonate, kayexelate given secondary to hyperkalemia. Will continue to hydrate, hold nephrotoxic medications and trend chemistries. Victor Manuel 59, UCr 104, renal US w/ normal appearing kidneys. Planned follow-up outpatient with Urology w/ May in place with cystoscopy and possible urodynamic evaluation of the bladder. Defer PSA now as can artificially be elevated w/ may. 01/24/18 BMP w/ Na 148, K 3.7, Chl 111, BUN/Cr 110/7.17, glucose 121. (2) Elevated BP without HTN Dx: BP >140/90 routinely, possibly secondary to acute presentation, trend and add regimen as needed, PRN hydralazine. (3) BPH: As noted, may catheter in place, maintained on flomax. (4) GERD: Famotidine. (5) DVT Prophylaxis: SCDs, heparin. Code Visit Inpatient E&M: 61068 Subs Hosp L3
--- NOTE | 2018-01-24 07:11 | PN_ITS ---
Patient Problems: Active and Suspected Problems JEAN (acute kidney injury) (Acute) Hyperkalemia (Acute) Acute retention of urine (Acute) Metabolic acidosis (Acute) Urinary retention (Acute) Subjective: Patient overnight with no acute events per self and per nursing staff. He is upright, seated in the bedside chair, notes still having some mild discomfort to bilateral lower back but otherwise feeling improved. Output continues to remain appropriate with May catheter in place. Discussed evaluation with ICU staff this morning and added urinalysis complete as well as urine culture current ongoing workup. Reviewed labs this morning with patient with improvement of renal function. Clinical improvement will transition patient to PCU status which was performed. Patient denies fevers, chills, nausea, emesis, abdominal pain, chest pain or dyspnea. Objective: Physical Examination: General: awake, alert, oriented to person, place, year although conversation abnormal, cooperative, seated upright in the ICU bedside chair, in no apparent distress. Skin: normal color, turgor, no icterus, cyanosis. HEENT: AT/NC, EOMI, PERRLA, MMM. Lungs: CTA bilaterally, moderate effort, mild decrease BL bases, no rales, ronchi or wheezing. Heart: Regular rate and rhythm; no gallop, rub audible. Abdomen: soft, obese, NTTP, ND, normal BS, may catheter in place, decent output. Extremities: no cyanosis, clubbing, mild BL ankle edema. Neurological: patient awake, alert, oriented x 3; cognitive function intact; pupils equally reactive to light and accomodation; cranial nerves II-XII grossly normal, moving all 4 extremities, no focal deficits, strength moderately globally decreased. Psychiatric: affect appears normal, no acute evidence of depressive or anxiety feelings. Vitals/I&O's: Vital Signs Temp Pulse Resp BP Pulse Ox 97.8 F 99 13 149/79 H 94 01/24/18 06:00 01/24/18 06:00 01/24/18 06:00 01/24/18 06:00 01/24/18 06:00 Oxygen Flow Rate 98 Oxygen Delivery Method Room Air Weight: 214 lb 1.102 oz Body Mass Index (BMI) 35.9 Intake and Output for Last 24 Hours 01/22/18 01/23/18 01/24/18 23:59 23:59 23:59 Intake Total 2275 / 2275 1576 / 1576 Output Total 8850 / 8850 3250 / 3250 Balance -6575 / -6575 -6204 / -6885 Laboratory Results 01/23/18 14:54: Specimen Type ART, Sample Site R Radial, pH 7.13 L*, Bicarbonate Actual 7.7 L, POC Total CO2 8, Base Excess -21 L, O2 Saturation 97, ABG pCO2 23.4 L, ABG pO2 113 H, Dong Test POS, O2 Delivery Device Nasal Can, Liter Flow 3.0, Blood Gas Notified Whom REHAN IRAHETA, Blood Gas Notified Time 1445 01/23/18 15:15: MRSA (PCR) Negative 01/23/18 16:30: Sodium 141, Potassium 5.7 H, Chloride 105, Carbon Dioxide 13.0 L , Anion Gap 23 H, BUN 210 H*, Creatinine 19.30 H*, Estim Creat Clear Calc 3.38, Est GFR (MDRD) Af Amer 3 L, Est GFR (MDRD) Non-Af 3 L, BUN/Creatinine Ratio 10.9 , Glucose 136 H, Calcium 8.7 01/23/18 19:45: Urine Creatinine 104.00 01/23/18 19:45: Ur Random Sodium 59 01/23/18 21:10: Sodium 147 H, Potassium 3.8, Chloride 110 H, Carbon Dioxide 22.0 , Anion Gap 15, BUN 160 H*, Creatinine 11.70 H*, Estim Creat Clear Calc 5.57, Est GFR (MDRD) Af Amer 6 L, Est GFR (MDRD) Non-Af 5 L, BUN/Creatinine Ratio 13.7 , Glucose 201 H, Calcium 8.7 01/24/18 04:05: WBC 5.9, RBC 4.50 L, Hgb 13.4, Hct 38.3 L, MCV 85.1, MCH 29.8, MCHC 35.0, RDW 13.5, RDW Differential 41.8, Plt Count 333, MPV 9.7 01/24/18 04:05: Sodium 148 H, Potassium 3.7, Chloride 111 H, Carbon Dioxide 24.0 , Anion Gap 13, BUN 110 H*, Creatinine 7.17 H, Estim Creat Clear Calc 9.09, Est GFR (MDRD) Af Amer 10 L, Est GFR (MDRD) Non-Af 8 L, BUN/Creatinine Ratio 15.3, Glucose 121 H, Calcium 8.8 Current Medications Acetaminophen (Tylenol) 650 mg PO Q6H PRN PRN PRN Reason: Mild Pain (1-3)/Temp > 100.7 F Bisacodyl (Dulcolax) 5 mg PO DAILY PRN PRN PRN Reason: Constipation Calamine/Phenol (Calmoseptine Ointment) 1 applic TOPICAL TID [facility] PRN Reason: Protocol Last Admin: 01/24/18 05:33 Dose: 1 applicatio Chlorhexidine Gluconate () 1 each TOPICAL DAILY [facility] Famotidine (Pepcid) 20 mg PO BID [facility] Last Admin: 01/23/18 21:19 Dose: 20 mg Heparin Sodium (Porcine) (Heparin Na) 5,000 unit SC BID [facility] Last Admin: 01/23/18 21:19 Dose: 5,000 units Sodium Chloride () 1,000 mls @ 100 mls/hr IV .Q10H [facility] Last Admin: 01/23/18 16:07 Dose: Not Given Sodium Chloride () 250 mls @ 15 mls/hr IV .[id number] PRN PRN Reason: SALINE FLUSH Sodium Chloride () 250 mls @ 15 mls/hr IV .[id number] PRN PRN Reason: SALINE FLUSH Sodium Chloride () 1,000 mls @ 250 mls/hr IV .Q4H [facility] Last Admin: 01/24/18 02:53 Dose: 250 mls/hr Magnesium Hydroxide (Milk Of Magnesia) 30 ml PO DAILY PRN PRN PRN Reason: Constipation Ondansetron HCl (Zofran) 4 mg IV Q6H PRN PRN PRN Reason: NAUSEA/VOMITING Oxycodone HCl (Oxyir) 5 mg PO Q8H PRN PRN PRN Reason: SEVERE PAIN (6-10/10) Psyllium Hydrophilic Mucilloid (Metamucil) 1 packet PO DAILY PRN PRN PRN Reason: CONSTIPATION Sodium Chloride () 5 - 30 ml IV UD PRN PRN Reason: SALINE FLUSH Last Admin: 01/23/18 21:20 Dose: 10 ml Tamsulosin HCl (Flomax) 0.4 mg PO BID [facility] Last Admin: 01/23/18 21:19 Dose: 0.4 mg Assessment/Plan Active and Suspected Problems JEAN (acute kidney injury) (Acute) Hyperkalemia (Acute) Acute retention of urine (Acute) Metabolic acidosis (Acute) Urinary retention (Acute) The patient is a 67 y/o M w/ PMHx: BPH, HLD who presents to the [facility] ED on with general malaise with UC evaluation and dx at that time w/ PNA, treated w / Levaquin but did not improve. (1) Acute kidney injury and RTA secondary to Urinary Retention w/ Azotemia, Metabolic Acidosis and Hyperkalemia: Admission BUN/Cr 227/23.40, prior baseline creatinine unknown but normal per patient. Urology consulted, may catheter placed upon transition to the ICU, 1L UOP following. Nephrology consulted, initiated on IVFs, IV push and drip sodium bicarbonate, kayexelate given secondary to hyperkalemia. Will continue to hydrate, hold nephrotoxic medications and trend chemistries. Victor Manuel 59, UCr 104, renal US w/ normal appearing kidneys. Planned follow-up outpatient with Urology w/ May in place with cystoscopy and possible urodynamic evaluation of the bladder. Defer PSA now as can artificially be elevated w/ may. 01/24/18 BMP w/ Na 148, K 3.7, Chl 111, BUN/Cr 110/7.17, glucose 121. (2) Elevated BP without HTN Dx: BP >140/90 routinely, possibly secondary to acute presentation, trend and add regimen as needed, PRN hydralazine. (3) BPH: As noted, may catheter in place, maintained on flomax. (4) GERD: Famotidine. (5) DVT Prophylaxis: SCDs, heparin. Code Visit Inpatient E&M: [id number] Subs Hosp L3
--- NOTE | 2018-01-24 07:28 | PCM.PN.BLA ---
Progress Note cr is improving dramatically, which is good u\s with no hydro, I will order a Ct scan abd/pelvis stone protocol will need to go home with may.
--- NOTE | 2018-01-24 07:29 | CT_ITS ---
STUDY: CT ABDOMEN AND PELVIS WITHOUT CONTRAST REASON FOR EXAM: Male, 67 years old. Acute renal failure. RADIATION DOSAGE (If Supplied By Facility): CTDIvol = ( 14.77 ) mGy, DLP = ( 731.95 ) mGycm TECHNIQUE: Transaxial images were obtained from the dome of the diaphragm to the symphysis pubis without oral contrast, and without intravenous contrast. Sagittal and coronal images were reconstructed. Individualized dose optimization techniques were used for this CT. COMPARISON: None. FINDINGS: Increased linear markings at the left lung base with there are focal areas of the calcification and coalescence. This may represent chronic scarring versus superimposed atelectasis. Coronary artery calcification. Normal liver. Normal gallbladder and extrahepatic biliary system. Normal spleen. Normal pancreas. Normal bilateral adrenal glands. Normal right kidney. Normal left kidney. Normal visualized stomach. Normal small intestine. Normal colon. The appendix is visualized and appears normal. There is diffuse atherosclerotic calcification of the abdominal aorta and its major visceral branches.. 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 Normal inferior vena cava. Normal retroperitoneum. A Mckeon catheter is seen within the urinary bladder. The urinary bladder is contracted. The prostate measures 5.5 cm x 4.5 cm. Focal calcifications are seen within it. There is a small umbilical hernia containing fat. There are diffuse degenerative changes of the visualized lumbar spine. CT/Abdomen/Pelvis without Cont IMPRESSION: Mckeon catheter is seen in the urinary bladder. The bladder is empty. Enlarged prostate. 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 Probable scarring with atelectasis at the left lung base. Electronically Signed: Osmany Gill MD at 8:22 EST Tel [phone], Service support ,
--- NOTE | 2018-01-24 10:31 | PCM.PN.REN ---
Patient Problems: Active and Suspected Problems JEAN (acute kidney injury) (Acute) Hyperkalemia (Acute) Acute retention of urine (Acute) Metabolic acidosis (Acute) Urinary retention (Acute) Subjective: denies any new complaints looks better today overall - Physical Exam General: Alert, Oriented x3, Cooperative HEENT: Atraumatic, PERRLA, EOMI, Normocephalic Neck: Supple, No JVD, Negative Carotid Bruits Lungs: Clear to auscultation, Normal air movement Cardiovascular: Regular rate, No murmurs Abdomen: Bowel Sounds Present, Soft, Non Tender Extremities: No edema, Capillary Refill Less than 3 Seconds Skin: No rashes, No breakdown Musculoskeletal: No Tenderness to Palpation of Joints or Extremities Neurological: Cranial nerves II-XII grossly intact Psych/Mental Status: Normal Affect, Appropriate Vital Signs Temp Pulse Resp BP Pulse Ox 97.6 F L 100 13 146/84 H 95 01/24/18 09:00 01/24/18 09:00 01/24/18 09:00 01/24/18 09:00 01/24/18 09:00 Oxygen Flow Rate 98 Oxygen Delivery Method Room Air Weight: 97.1 kg Body Mass Index (BMI) 35.9 Intake and Output for Last 24 Hours 01/22/18 01/23/18 01/24/18 23:59 23:59 23:59 Intake Total 2275 / 2275 1576 / 1576 Output Total 8850 / 8850 3800 / 3800 Balance -6575 / -6575 -2224 / -2224 Laboratory Tests Past 24 Hrs 01/23/18 01/23/18 01/23/18 14:54 15:15 16:30 WBC RBC Hgb Hct MCV MCH MCHC RDW RDW Differential Plt Count MPV Specimen Type ART Sample Site R Radial pH 7.13 L* Bicarbonate Actual 7.7 L POC Total CO2 8 Base Excess -21 L O2 Saturation 97 ABG pCO2 23.4 L ABG pO2 113 H Dong Test POS O2 Delivery Device Nasal Can Liter Flow 3.0 Blood Gas Notified Whom HOSP Blood Gas Notified Time 1445 Sodium 141 Potassium 5.7 H Chloride 105 Carbon Dioxide 13.0 L Anion Gap 23 H BUN 210 H* Creatinine 19.30 H* Estim Creat Clear Calc 3.38 Est GFR (MDRD) Af Amer 3 L Est GFR (MDRD) Non-Af 3 L BUN/Creatinine Ratio 10.9 Glucose 136 H Calcium 8.7 Ur Random Sodium Urine Creatinine MRSA (PCR) Negative 01/23/18 01/23/18 01/23/18 19:45 19:45 21:10 WBC RBC Hgb Hct MCV MCH MCHC RDW RDW Differential Plt Count MPV Specimen Type Sample Site pH Bicarbonate Actual POC Total CO2 Base Excess O2 Saturation ABG pCO2 ABG pO2 Dong Test O2 Delivery Device Liter Flow Blood Gas Notified Whom Blood Gas Notified Time Sodium 147 H Potassium 3.8 Chloride 110 H Carbon Dioxide 22.0 Anion Gap 15 BUN 160 H* Creatinine 11.70 H* Estim Creat Clear Calc 5.57 Est GFR (MDRD) Af Amer 6 L Est GFR (MDRD) Non-Af 5 L BUN/Creatinine Ratio 13.7 Glucose 201 H Calcium 8.7 Ur Random Sodium 59 Urine Creatinine 104.00 MRSA (PCR) 01/24/18 01/24/18 04:05 04:05 WBC 5.9 RBC 4.50 L Hgb 13.4 Hct 38.3 L MCV 85.1 MCH 29.8 MCHC 35.0 RDW 13.5 RDW Differential 41.8 Plt Count 333 MPV 9.7 Specimen Type Sample Site pH Bicarbonate Actual POC Total CO2 Base Excess O2 Saturation ABG pCO2 ABG pO2 Dong Test O2 Delivery Device Liter Flow Blood Gas Notified Whom Blood Gas Notified Time Sodium 148 H Potassium 3.7 Chloride 111 H Carbon Dioxide 24.0 Anion Gap 13 BUN 110 H* Creatinine 7.17 H Estim Creat Clear Calc 9.09 Est GFR (MDRD) Af Amer 10 L Est GFR (MDRD) Non-Af 8 L BUN/Creatinine Ratio 15.3 Glucose 121 H Calcium 8.8 Ur Random Sodium Urine Creatinine MRSA (PCR) Assessment/Plan Active and Suspected Problems JEAN (acute kidney injury) (Acute) Hyperkalemia (Acute) Acute retention of urine (Acute) Metabolic acidosis (Acute) Urinary retention (Acute) JEAN. presumbaly normal baseline creatinine. JEAN related to obstructive nephropathy POst obstructive diuresis hypernatremia BPH related urinary retention Plan continue half normal saline at 250cc.hr. overall he made about 12 L of urine, and significantly net negative. BP is ok. Would bolus half normal saline if hypotensive May in place, urology on consult. will likely go home with may as per urology CT abd shows enlarged prostrate USG shows no hydronephrosis should be able to go home in 1-[address] with may in [address]
[2018-01-24] MEDS: Famotidine 20 MG Tablet PO ×2 (10:35→21:43)
[2018-01-24] MEDS: CHLORHEXIDINE GLUC 2% CLOTH 1 EACH TOWELETTE TOPICAL (10:36)
[2018-01-24] MEDS: Tamsulosin HCl 0.4 MG Capsule PO ×2 (10:36→21:43)
--- NOTE | 2018-01-24 11:28 | CASEMGMT ---
DC PLAN: /pt would like him to return home. She states he has been independent, she will drive him to appointments if needed. -BUN/Creat 110/7.17, Na 148, K 3.7. May not need dialysis as obstructive uropathy is resolving with may catheter -Continue to follow for PT/OT recommendations and assess for dc needs. Norma RAON RN ACM
[2018-01-24 11:47] LABS: Mucous, Urine 0 SEEN /hpf (<or=2+)
[2018-01-24 12:02] LABS: Color, Urine Yellow (Yellow); Glucose, Dipstick Normal (Normal); Ketone-Dipstick Negative (Negative); Leukocyte Esterase-Dipstick 500 /ul (Negative); Nitrite-Dipstick Negative (Negative); Occult Blood-Urine 250 /ul (Negative); Protein-Dipstick 30 mg/dl (Negative); Specific Gravity, Urine 1.015 (1.002-1.030); Urine Bilirubin Dipstick Negative (Negative); Urine Clarity Sl. Cloudy (Clear); Urine Urobilinogen Normal (Normal)
[2018-01-24 12:14] LABS: Red Blood Cells-Urine 50-100 SEEN /hpf (0-5); White Blood Cells 50-100 SEEN /hpf (0-5)
[2018-01-24 12:15] LABS: Bacteria RARE /hpf (None Seen); Squamous Epithelial Cells - UA 0-5 SEEN /hpf (0-5)
--- NOTE | 2018-01-24 16:58 | PCM.PN.BLA ---
Progress Note cr getting better. needs to go home with may will start proscar but anticipate with need TURP would like to see a outpatient first to make sure all acute issues address then plan for TURP later. follow up with Urology on discharge rx for proscar.
[2018-01-25] VITALS (7 sets, daily range): BP systolic 129–139; BP diastolic 64–81; PULSE 81–123; RESP 13–18; TEMP 36.8–37.1; O2SAT 93–96
[2018-01-25] MEDS: 0.45% Normal Saline 1,000 ML 250 ML IV ×3 (01:58→10:08)
[2018-01-25] MEDS: Menthol/Lanolin/Calamine/Znox 113 GM Tube 1 APPLIC TOPICAL (05:51)
--- NOTE | 2018-01-25 09:05 | PCM.PN.HOSP ---
Patient Problems: Active and Suspected Problems JEAN (acute kidney injury) (Acute) Hyperkalemia (Acute) Acute retention of urine (Acute) Metabolic acidosis (Acute) Urinary retention (Acute) Subjective: Patient overnight continued to be mildly aggressive with staff, similar to day prior, primarily when he felt bothered. This was unchanged since admission and upon repeat questioning patient was always oriented. He notes continuously that he wants to go home and notes his irritability is secondary to having to remain in the hospital. Reviewed current presentation with family, they notes he is better after a low dose ativan. Reviewed labs with patient and family and his renal fx has returned to baseline. Patient and family note understanding that may must remain in place and he will follow-up with Urology and Nephrology outpatient with future TURP likely. Patient denies fevers, chills, nausea, emesis, abdominal pain, chest pain or dyspnea. Objective: Physical Examination: General: awake, alert, oriented similar to prior including to person, place, year although remains irritable, similar to day prior, was cooperative with physician requests, seated upright in the bedside chair, walking earlier in the room, irritable at having to remain in the hospital, calms down when discussion undertaken. Skin: normal color, turgor, no icterus, cyanosis. HEENT: AT/NC, EOMI, PERRLA, MMM. Lungs: CTA bilaterally, moderate effort, mild decrease BL bases, no rales, ronchi or wheezing. Heart: Regular rate and rhythm; no gallop, rub audible. Abdomen: soft, obese, NTTP, ND, normal BS, may catheter in place, decent output. Extremities: no cyanosis, clubbing, mild BL ankle edema. Neurological: patient awake, alert, oriented x 3; cognitive function intact; pupils equally reactive to light and accomodation; cranial nerves II-XII grossly normal, moving all 4 extremities, no focal deficits, strength improved, mildly globally decreased. Psychiatric: affect appears mildly irritable, no acute evidence of depressive or anxiety feelings. Vitals/I&O's: Vital Signs Temp Pulse Resp BP Pulse Ox 98.4 F 91 16 129/81 H 96 01/25/18 06:02 01/25/18 06:57 01/25/18 06:02 01/25/18 06:02 01/25/18 07:32 Oxygen Flow Rate 98 Oxygen Delivery Method Room Air Weight: 218 lb 14.704 oz Body Mass Index (BMI) 35.9 Intake and Output for Last 24 Hours 01/23/18 01/24/18 01/25/18 23:59 23:59 23:59 Intake Total 2275 / 2275 5089 / 5089 1580 / 1580 Output Total 8850 / 8850 7705 / 7705 580 / 580 Balance -6575 / -6575 -2616 / -2616 1000 / 1000 Laboratory Results 01/24/18 11:30: Urine Color Yellow, Urine Clarity Sl. Cloudy, Urine pH 6.0, Ur Specific [place] 1.015, Urine Protein 30 H, Urine Glucose (UA) Normal, Urine Ketones Negative, Urine Occult Blood 250 H, Urine Nitrite Negative, Urine Bilirubin Negative, Urine Urobilinogen Normal, Ur Leukocyte Esterase 500 H, Urine RBC 50-100 SEEN, Urine WBC 50-100 SEEN, Ur Squamous Epith Cells 0-5 SEEN, Urine Bacteria RARE, Urine Mucus 0 SEEN Current Medications Acetaminophen (Tylenol) 650 mg PO Q6H PRN PRN PRN Reason: Mild Pain (1-3)/Temp > 100.7 F Bisacodyl (Dulcolax) 5 mg PO DAILY PRN PRN PRN Reason: Constipation Calamine/Phenol (Calmoseptine Ointment) 1 applic TOPICAL TID [facility] PRN Reason: Protocol Last Admin: 01/25/18 05:51 Dose: 1 applicatio Chlorhexidine Gluconate () 1 each TOPICAL DAILY [facility] Last Admin: 01/24/18 10:36 Dose: 1 each Famotidine (Pepcid) 20 mg PO BID [facility] Last Admin: 01/24/18 21:43 Dose: 20 mg Finasteride (Proscar) 5 mg PO DAILY [facility] Heparin Sodium (Porcine) (Heparin Na) 5,000 unit SC BID [facility] Last Admin: 01/24/18 21:44 Dose: 5,000 units Sodium Chloride () 250 mls @ 15 mls/hr IV .[id number] PRN PRN Reason: SALINE FLUSH Sodium Chloride () 250 mls @ 15 mls/hr IV .[id number] PRN PRN Reason: SALINE FLUSH Sodium Chloride () 1,000 mls @ 250 mls/hr IV .Q4H [facility] Last Admin: 01/25/18 05:59 Dose: 250 mls/hr Magnesium Hydroxide (Milk Of Magnesia) 30 ml PO DAILY PRN PRN PRN Reason: Constipation Ondansetron HCl (Zofran) 4 mg IV Q6H PRN PRN PRN Reason: NAUSEA/VOMITING Oxycodone HCl (Oxyir) 5 mg PO Q8H PRN PRN PRN Reason: SEVERE PAIN (6-10/10) Psyllium Hydrophilic Mucilloid (Metamucil) 1 packet PO DAILY PRN PRN PRN Reason: CONSTIPATION Sodium Chloride () 5 - 30 ml IV UD PRN PRN Reason: SALINE FLUSH Last Admin: 01/23/18 21:20 Dose: 10 ml Tamsulosin HCl (Flomax) 0.4 mg PO BID [facility] Last Admin: 01/24/18 21:43 Dose: 0.4 mg Assessment/Plan Active and Suspected Problems JEAN (acute kidney injury) (Acute) Hyperkalemia (Acute) Acute retention of urine (Acute) Metabolic acidosis (Acute) Urinary retention (Acute) The patient is a 67 y/o M w/ PMHx: BPH, HLD who presents to the [facility] ED on 01/23/18 with general malaise with UC evaluation and dx at that time w/ PNA, treated w/ Levaquin but did not improve. (1) Acute kidney injury and RTA secondary to Urinary Retention w/ Azotemia, Metabolic Acidosis and Hyperkalemia: Admission BUN/Cr 227/23.40, prior baseline creatinine unknown but normal per patient. Urology consulted, may catheter placed upon transition to the ICU, 1L UOP following. Nephrology consulted, initiated on IVFs, IV push and drip sodium bicarbonate, kayexelate given secondary to hyperkalemia eventually transitioned. Victor Manuel 59, UCr 104, renal US w/ normal appearing kidneys. 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 Given improvement, de-escalated to PCU status 01/24/18. Deferred PSA now as can artificially be elevated w/ may. 01/24/18 BMP w/ Na 148, K 3.7, Chl 111, BUN/Cr 110/7.17, glucose 121-->01/25/18 Na 148, Chl 111, BUN/Cr 110/7.17, glucose 121, repeat UA w/ occult blood 250, protein 30, LE 500, RBC 50-100, WBC 50-100, bacteria rate, SEC 0-5. 3 BUN/Cr 26/1.07, normalized renal function. Reviewed labs with Urology and Nephrology and given improvement amenable to discharge to home with follow-up in the office. Planned follow-up outpatient with Urology w/ May in place with cystoscopy and possible urodynamic evaluation of the bladder w/ eventual TURP. (2) ? Encephalopathy: Secondary to #1, family notes not routinely irritable and aggressive. Patient calms with discussions, given low dose ativan and family notes more baseline. Discussed status with family, offered continued hospitalization but family amenable to discharge to home today with spouse with close follow-up with PCP. Expect continued improvement given renal function normalization. (3) Elevated BP without HTN Dx: BP >140/90 routinely, possibly secondary to acute presentation, improved, add regimen as needed, PRN hydralazine. (4) BPH: As noted, may catheter in place, will remain in place upon discharge w/ Urology follow-up, maintained on flomax and proscar. (5) GERD: Famotidine. (6) DVT Prophylaxis: SCDs, heparin.
--- NOTE | 2018-01-25 09:09 | PN_ITS ---
Patient Problems: Active and Suspected Problems JEAN (acute kidney injury) (Acute) Hyperkalemia (Acute) Acute retention of urine (Acute) Metabolic acidosis (Acute) Urinary retention (Acute) Subjective: Patient overnight continued to be mildly aggressive with staff, similar to day prior, primarily when he felt bothered. This was unchanged since admission and upon repeat questioning patient was always oriented. He notes continuously that he wants to go home and notes his irritability is secondary to having to remain in the hospital. Reviewed current presentation with family, they notes he is better after a low dose ativan. Reviewed labs with patient and family and his renal fx has returned to baseline. Patient and family note understanding that may must remain in place and he will follow-up with Urology and Nephrology outpatient with future TURP likely. Patient denies fevers, chills, nausea, emesis, abdominal pain, chest pain or dyspnea. Objective: Physical Examination: General: awake, alert, oriented similar to prior including to person, place, year although remains irritable, similar to day prior, was cooperative with physician requests, seated upright in the bedside chair, walking earlier in the room, irritable at having to remain in the hospital, calms down when discussion undertaken. Skin: normal color, turgor, no icterus, cyanosis. HEENT: AT/NC, EOMI, PERRLA, MMM. Lungs: CTA bilaterally, moderate effort, mild decrease BL bases, no rales, ronchi or wheezing. Heart: Regular rate and rhythm; no gallop, rub audible. Abdomen: soft, obese, NTTP, ND, normal BS, may catheter in place, decent output. Extremities: no cyanosis, clubbing, mild BL ankle edema. Neurological: patient awake, alert, oriented x 3; cognitive function intact; pupils equally reactive to light and accomodation; cranial nerves II-XII grossly normal, moving all 4 extremities, no focal deficits, strength improved, mildly globally decreased. Psychiatric: affect appears mildly irritable, no acute evidence of depressive or anxiety feelings. Vitals/I&O's: Vital Signs Temp Pulse Resp BP Pulse Ox 98.4 F 91 16 129/81 H 96 01/25/18 06:02 01/25/18 06:57 01/25/18 06:02 01/25/18 06:02 01/25/18 07:32 Oxygen Flow Rate 98 Oxygen Delivery Method Room Air Weight: 218 lb 14.704 oz Body Mass Index (BMI) 35.9 Intake and Output for Last 24 Hours 01/23/18 01/24/18 01/25/18 23:59 23:59 23:59 Intake Total 2275 / 2275 5089 / 5089 1580 / 1580 Output Total 8850 / 8850 7705 / 7705 580 / 580 Balance -6575 / -6575 -2616 / -2616 1000 / 1000 Laboratory Results 01/24/18 11:30: Urine Color Yellow, Urine Clarity Sl. Cloudy, Urine pH 6.0, Ur Specific [place] 1.015, Urine Protein 30 H, Urine Glucose (UA) Normal, Urine Ketones Negative, Urine Occult Blood 250 H, Urine Nitrite Negative, Urine Bilirubin Negative, Urine Urobilinogen Normal, Ur Leukocyte Esterase 500 H, Urine RBC 50-100 SEEN, Urine WBC 50-100 SEEN, Ur Squamous Epith Cells 0-5 SEEN, Urine Bacteria RARE, Urine Mucus 0 SEEN Current Medications Acetaminophen (Tylenol) 650 mg PO Q6H PRN PRN PRN Reason: Mild Pain (1-3)/Temp > 100.7 F Bisacodyl (Dulcolax) 5 mg PO DAILY PRN PRN PRN Reason: Constipation Calamine/Phenol (Calmoseptine Ointment) 1 applic TOPICAL TID [facility] PRN Reason: Protocol Last Admin: 01/25/18 05:51 Dose: 1 applicatio Chlorhexidine Gluconate () 1 each TOPICAL DAILY [facility] Last Admin: 01/24/18 10:36 Dose: 1 each Famotidine (Pepcid) 20 mg PO BID [facility] Last Admin: 01/24/18 21:43 Dose: 20 mg Finasteride (Proscar) 5 mg PO DAILY [facility] Heparin Sodium (Porcine) (Heparin Na) 5,000 unit SC BID [facility] Last Admin: 01/24/18 21:44 Dose: 5,000 units Sodium Chloride () 250 mls @ 15 mls/hr IV .[id number] PRN PRN Reason: SALINE FLUSH Sodium Chloride () 250 mls @ 15 mls/hr IV .[id number] PRN PRN Reason: SALINE FLUSH Sodium Chloride () 1,000 mls @ 250 mls/hr IV .Q4H [facility] Last Admin: 01/25/18 05:59 Dose: 250 mls/hr Magnesium Hydroxide (Milk Of Magnesia) 30 ml PO DAILY PRN PRN PRN Reason: Constipation Ondansetron HCl (Zofran) 4 mg IV Q6H PRN PRN PRN Reason: NAUSEA/VOMITING Oxycodone HCl (Oxyir) 5 mg PO Q8H PRN PRN PRN Reason: SEVERE PAIN (6-10/10) Psyllium Hydrophilic Mucilloid (Metamucil) 1 packet PO DAILY PRN PRN PRN Reason: CONSTIPATION Sodium Chloride () 5 - 30 ml IV UD PRN PRN Reason: SALINE FLUSH Last Admin: 01/23/18 21:20 Dose: 10 ml Tamsulosin HCl (Flomax) 0.4 mg PO BID [facility] Last Admin: 01/24/18 21:43 Dose: 0.4 mg Assessment/Plan Active and Suspected Problems JEAN (acute kidney injury) (Acute) Hyperkalemia (Acute) Acute retention of urine (Acute) Metabolic acidosis (Acute) Urinary retention (Acute) The patient is a 67 y/o M w/ PMHx: BPH, HLD who presents to the [facility] ED on with general malaise with UC evaluation and dx at that time w/ PNA, treated w / Levaquin but did not improve. (1) Acute kidney injury and RTA secondary to Urinary Retention w/ Azotemia, Metabolic Acidosis and Hyperkalemia: Admission BUN/Cr 227/23.40, prior baseline creatinine unknown but normal per patient. Urology consulted, may catheter placed upon transition to the ICU, 1L UOP following. Nephrology consulted, initiated on IVFs, IV push and drip sodium bicarbonate, kayexelate given secondary to hyperkalemia eventually transitioned. Victor Manuel 59, UCr 104, renal US w/ normal appearing kidneys. 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 Given improvement, de-escalated to PCU status 01/24/18. Deferred PSA now as can artificially be elevated w/ may. 01/24/18 BMP w/ Na 148, K 3.7, Chl 111, BUN/ Cr 110/7.17, glucose 121-->01/25/18 Na 148, Chl 111, BUN/Cr 110/7.17, glucose 121 , repeat UA w/ occult blood 250, protein 30, LE 500, RBC 50-100, WBC 50-100, bacteria rate, SEC 0-5. 3 BUN/Cr 26/1.07, normalized renal function. Reviewed labs with Urology and Nephrology and given improvement amenable to discharge to home with follow-up in the office. Planned follow-up outpatient with Urology w/ May in place with cystoscopy and possible urodynamic evaluation of the bladder w/ eventual TURP. (2) ? Encephalopathy: Secondary to #1, family notes not routinely irritable and aggressive. Patient calms with discussions, given low dose ativan and family notes more baseline. Discussed status with family, offered continued hospitalization but family amenable to discharge to home today with spouse with close follow-up with PCP. Expect continued improvement given renal function normalization. (3) Elevated BP without HTN Dx: BP >140/90 routinely, possibly secondary to acute presentation, improved, add regimen as needed, PRN hydralazine. (4) BPH: As noted, may catheter in place, will remain in place upon discharge w/ Urology follow-up, maintained on flomax and proscar. (5) GERD: Famotidine. (6) DVT Prophylaxis: SCDs, heparin.
[2018-01-25] MEDS: Finasteride 5 MG Tablet PO (09:29)
[2018-01-25] MEDS: Tamsulosin HCl 0.4 MG Capsule PO (09:29)
[2018-01-25] MEDS: Famotidine 20 MG Tablet PO (09:29)
[2018-01-25] MEDS: LORazepam 0.5 MG Tablet PO (11:21)
--- NOTE | 2018-01-25 11:43 | DCINST_ITS ---
- Discharge Diagnoses Current Active Problems: Current Active and Chronic Problems JEAN (acute kidney injury) (Acute) Hyperkalemia (Acute) Acute retention of urine (Acute) Metabolic acidosis (Acute) Urinary retention (Acute) (1) Acute kidney injury and RTA secondary to Urinary Retention w/ Azotemia, Metabolic Acidosis and Hyperkalemia w/ BPH (2) Elevated BP without HTN Dx, Improved, Normalized (3) BPH (4) GERD You will use the following diet at home:: No restrictions Your food should be the consistency of: Regular Your liquids should be the consistency of: Regular/Thin Discharge Activity: - - Avoid activity that may cause may to be pulled on or dislodged. May resume sexual activity in: - - Deferred given may in place. Weight Bearing Status: Weight bearing as tolerated Call your doctor if you observe: Fever of 101 or Higher, Change in Color, Inability to urinate, Inability to have a bowel movement, Shortness of breath, Dizziness, Fainting spells, Chest pain, Uncontrolled pain Instructions: Discharge Instructions for Acute Kidney Injury, Monitoring Kidney Health, ED Prostate Enlarged, ED Catheter Care May, Emptying and Cleaning Your Urinary Catheter Bag, Transurethral Resection of the Prostate ( TURP) Additional Instructions: Please continue as directed per Urology and Nephrology with planned repeat basic metabolic panel per Dr. Wooten direction, may to be maintained in place until re-evaluation per Dr. Thompson. Allergies/Adverse Reactions: Allergies No Known Allergies Allergy (Verified 01/23/18 11:14) Medications to take at Discharge Niacin 01/23/18 Psyllium [Metamucil] 1 packet PO DAILY 01/23/18 Finasteride [Proscar] 5 mg PO DAILY #30 tab 01/25/18 Tamsulosin HCl [Flomax] 0.4 mg PO BID #60 cap 01/25/18 The following prescriptions were given: Finasteride [Proscar] 5 mg PO DAILY #30 tab Tamsulosin HCl [Flomax] 0.4 mg PO BID #60 cap Primary Care Physician: Terry Peralta MD [Primary Care Provider] - Please follow up with your Primary Care Physician in: Follow-up within 3-5 days to review admission. Please Follow Up With: Xander Wooten MD When: Follow-up as directed per Nephrology, otherwise 1 week. Please Follow Up With: Pito Thompson MD When: Follow-up as directed per Urology, otherwise 1 week. Proposed Discharge Date: 01/25/18
--- NOTE | 2018-01-25 11:43 | PCM.DC.SUM ---
Discharge Date and Diagnosis - Problem List Patient Problems: Active and Suspected Problems JEAN (acute kidney injury) (Acute) Hyperkalemia (Acute) Acute retention of urine (Acute) Metabolic acidosis (Acute) Urinary retention (Acute) Date of Admission: 01/23/18 Date of Discharge: 01/25/18 - Primary Discharge Diagnosis Active and Suspected Problems JEAN (acute kidney injury) (Acute) Hyperkalemia (Acute) Acute retention of urine (Acute) Metabolic acidosis (Acute) Urinary retention (Acute) (1) Acute kidney injury and RTA secondary to Urinary Retention w/ Azotemia, Metabolic Acidosis and Hyperkalemia w/ BPH (2) Elevated BP without HTN Dx, Improved, Normalized (3) BPH (4) GERD - Secondary Discharge Diagnosis BPH GERD Hospital Course and Treatment Dr. Wooten Nephrology Dr. Thompson Urology Dr. Alfonso ICU Operations: None Procedures: EKG Summary of Care Provided: The patient is a 67 y/o M w/ PMHx: BPH, HLD who presented to the [facility] ED on 01/23/18 with general malaise with UC evaluation and dx at that time w/ PNA, treated w/ Levaquin but did not improve. Following ED evaluation and notable evidence JEAN, patient admitted w/ Acute kidney injury and RTA secondary to Urinary Retention w/ Azotemia, Metabolic Acidosis and Hyperkalemia w/ admission BUN/Cr 227/23.40, prior baseline creatinine unknown but normal per patient. Urology consulted, may catheter placed upon transition to the ICU, 1L UOP following. Nephrology consulted, initiated on IVFs, IV push and drip sodium bicarbonate, kayexelate given secondary to hyperkalemia which corrected. Victor Manuel 59, UCr 104, renal US w/ normal appearing kidneys. 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 Given improvement, de-escalated to PCU status 01/24/18. Deferred PSA now as can artificially be elevated w/ may. 01/24/18 BMP w/ Na 148, K 3.7, Chl 111, BUN/Cr 110/7.17, glucose 121-->01/25/18 Na 148, Chl 111, BUN/Cr 110/7.17, glucose 121, repeat UA w/ occult blood 250, protein 30, LE 500, RBC 50-100, WBC 50-100, bacteria rate, SEC 0-5. 3 BUN/Cr 26/1.07, normalized renal function. Reviewed labs with Urology and Nephrology and given improvement amenable to discharge to home with follow-up in the office. Planned follow-up outpatient with Urology w/ May in place with cystoscopy and possible urodynamic evaluation of the bladder w/ eventual TURP. During admission patient routinely irritable and mildly aggressive in comments only which family noted was not patient baseline and suspected likely secondary to his acute presentation. Patient calmed with discussions, mostly irritable with requests and at having to be hospitalized. Improved once discharge discussed. Discussed status with family, offered continued hospitalization but family amenable to discharge to home today with spouse with close follow-up with PCP. Expect continued improvement given renal function normalization. Patient discharged to home w/ may in place on regimen flomax and proscar per Urology request with follow-up as noted with PCP, Urology and Nephrology. Discharge Activity: - - Avoid activity that may cause may to be pulled on or dislodged. May resume sexual activity in: - - Deferred given may in place. Weight Bearing Status: Weight bearing as tolerated Call your doctor if you observe: Fever of 101 or Higher, Change in Color, Inability to urinate, Inability to have a bowel movement, Shortness of breath, Dizziness, Fainting spells, Chest pain, Uncontrolled pain Home Medications: Medications to take at Discharge Niacin 01/23/18 Psyllium [Metamucil] 1 packet PO DAILY 01/23/18 Finasteride [Proscar] 5 mg PO DAILY #30 tab 01/25/18 Lorazepam [Ativan] 0.5 mg PO DAILY PRN PRN 3 Days #3 tablet 01/25/18 Tamsulosin HCl [Flomax] 0.4 mg PO BID #60 cap 01/25/18 Following Prescrptions Were Given to Patient: Finasteride [Proscar] 5 mg PO DAILY #30 tab Lorazepam [Ativan] 0.5 mg PO DAILY PRN PRN 3 Days #3 tablet PRN Reason: agitation/anxiety Tamsulosin HCl [Flomax] 0.4 mg PO BID #60 cap Primary Care Physician: Terry Peralta MD [Primary Care Provider] - Please follow up with your Primary Care Physician in: Follow-up within 3-5 days to review admission. Please Follow Up With: Xander Wooten MD When: Follow-up as directed per Nephrology, otherwise 1 week. Please Follow Up With: Pito Thompson MD When: Follow-up as directed per Urology, otherwise 1 week. Patient Instructions: Transurethral Resection of the Prostate (TURP), Monitoring Kidney Health, Emptying and Cleaning Your Urinary Catheter Bag, Discharge Instructions for Acute Kidney Injury, ED Prostate Enlarged, ED Catheter Care May Disposition: Home Minutes spent on discharge:: 35 Patient Condition:: Fair Meaningful Use Info Meaningful Use Diagnoses (Choose all that apply): None applicable Code Visit Inpatient E&M: 66613 Disch Hosp
[2018-01-25 12:07] LABS: Anion Gap 9 (5-15); BUN 26 mg/dL (7-18); BUN/Creat Ratio 24.3 RATIO (10-20); Calcium,Total 8.3 mg/dL (8.5-10.1); Chloride 114 mmol/L (98-107); Creatinine, Serum 1.07 mg/dL (0.70-1.30); EST Glomerular Filtration Rate 73 mL/min (>60); Est Glom Filt Rate - Afr Amer 88 mL/min (>60); Estimated Creatinine Clearance 60.92 ml/min; Glucose 113 mg/dL (74-106); Potassium 3.9 mmol/L (3.5-5.1); Sodium Level 145 mmol/L (136-145)
--- NOTE | 2018-01-25 12:16 | PCM.PN.REN ---
Patient Problems: Active and Suspected Problems JEAN (acute kidney injury) (Acute) Hyperkalemia (Acute) Acute retention of urine (Acute) Metabolic acidosis (Acute) Urinary retention (Acute) Subjective: no new complaints - Physical Exam General: Alert, Oriented x3, Cooperative HEENT: Atraumatic, PERRLA, EOMI, Normocephalic Neck: Supple, No JVD, Negative Carotid Bruits Lungs: Clear to auscultation, Normal air movement Cardiovascular: Regular rate, No murmurs Abdomen: Bowel Sounds Present, Soft, Non Tender Extremities: No edema, Capillary Refill Less than 3 Seconds Skin: No rashes, No breakdown Musculoskeletal: No Tenderness to Palpation of Joints or Extremities Neurological: Cranial nerves II-XII grossly intact Psych/Mental Status: Normal Affect, Appropriate Vital Signs Temp Pulse Resp BP Pulse Ox 98.8 F 123 H 18 131/64 H 93 01/25/18 09:32 01/25/18 11:03 01/25/18 09:32 01/25/18 09:32 01/25/18 09:32 Oxygen Flow Rate 98 Oxygen Delivery Method Room Air Weight: 99.3 kg Body Mass Index (BMI) 35.9 Intake and Output for Last 24 Hours 01/23/18 01/24/18 01/25/18 23:59 23:59 23:59 Intake Total 2275 / 2275 5089 / 5089 3150 / 3150 Output Total 8850 / 8850 7705 / 7705 1979 / 1979 Balance -6575 / -6575 -2616 / -2616 1170 / 1170 Laboratory Tests Past 24 Hrs 01/25/18 11:36 Sodium 145 Potassium 3.9 Chloride 114 H Carbon Dioxide 22.0 Anion Gap 9 BUN 26 H Creatinine 1.07 Estim Creat Clear Calc 60.92 Est GFR (MDRD) Af Amer 88 Est GFR (MDRD) Non-Af 73 BUN/Creatinine Ratio 24.3 H Glucose 113 H Calcium 8.3 L Assessment/Plan Active and Suspected Problems JEAN (acute kidney injury) (Acute) Hyperkalemia (Acute) Acute retention of urine (Acute) Metabolic acidosis (Acute) Urinary retention (Acute) JEAN. presumbaly normal baseline creatinine. JEAN related to obstructive nephropathy POst obstructive diuresis hypernatremia BPH related urinary retention Plan May in place, urology on consult. will likely go home with may as per urology CT abd shows enlarged prostrate USG shows no hydronephrosis creatinine today is down to normal. dc home
== END 2018-01-25 14:15 | disposition home or self-care (01) | DRG 683 ==
LOC: ED 12:54 → ICU 14:03 → PCU 01-25 09:03
PROVIDERS: Internal Medicine Nephrology; Admitting Provider Internal Medicine; Emergency Provider Emergency Medicine; Family Provider Family Medicine; PCP Family Medicine; Visit Provider Family Medicine
DX: N17.9 Acute kidney failure, unspecified (principal); E87.2 Acidosis; E87.5 Hyperkalemia; R33.8 Other retention of urine; N40.1 Benign prostatic hyperplasia with lower urinary tract symptoms; K21.9 Gastro-esophageal reflux disease without esophagitis; R03.0 Elevated blood-pressure reading, without diagnosis of hypertension
CPT/HCPCS: 36415; 36600; 71045; 74176; 76770; 80048; 80053; 81001; 82570; 82803; 83605; 84300; 84484; 85025; 85027; 85610; 85730; 87040; 87086; 87641; 87804; 93005; 94640; 97162; 97166; 99251; 99285; J7030; J7040; A4216; G0463; J0610

== ENCOUNTER → 2018-02-27 13:38 | Outpatient (CLI) | payer MEDICARE, OTHER, SELFPAY ==
--- NOTE | 2018-02-27 13:40 | ECHOD_ITS ---
Reason For Study: ABN EKG Procedure This was a 2D Doppler, Color Flow transthoracic echocardiogram. The study was technically limited. Exam performed in department. Left Ventricle Normal LV size. Left ventricular systolic function is normal. The estimated ejection fraction is 55 %. Transmitral diastolic flow velocities suggest mild (stage 1) diastolic dysfunction (reversed pattern). No regional wall motion abnormalities noted. Right Ventricle Mildly dilated right ventricle. Normal systolic function. Atria Normal left atrium. Normal right atrium. Mitral Valve Normal mitral valve. Tricuspid Valve Normal tricuspid valve. Mild (1+) tricuspid valve insufficiency. Pulmonary artery systolic pressure is 35 mmHg. Aortic Valve Trisinus/trileaflet aortic valve. Pulmonic Valve Normal pulmonic valve. Mild-Moderate (1-2+) pulmonic valve insufficiency. Great Vessels Normal aortic root. The pulmonary artery is normal size. Normal inferior vena cava. Pericardium/Pleural No pericardial effusion. MMode/2D Measurements & Calculations LVIDd: 3.7 cm IVSd: 1.0 cm LVOT diam: 2.0 cm LVIDs: 2.7 cm LVPWd: 1.2 cm LVOT area: 3.0 cm2 FS: 25.5 % Ao root diam: 3.3 cm LAV(MOD-sp4): 32.4 ml LA A4 area: 13.7 cm2 RA A4 area: 15.1 cm2 Doppler Measurements & Calculations MV E max andrew: 48.9 cm/sec Lat Peak E' Andrew: 12.5 cm/sec Med Peak E' Andrew: 5.9 cm/sec MV A max andrew: 56.4 cm/sec E/E' lat: 3.9 E/E' med: 8.3 MV E/A: 0.87 Ao V2 max: 146.2 cm/sec LV V1 max: 94.1 cm/sec PA V2 max: 174.4 cm/sec Ao max P.6 mmHg LV V1 max P.6 mmHg SHELDON(V,D): 1.9 cm2 TR max andrew: 276.1 cm/sec TR max P.9 mmHg Interpretation Summary Normal LV size. Left ventricular systolic function is normal. The estimated ejection fraction is 55 %. Transmitral diastolic flow velocities suggest mild (stage 1) diastolic dysfunction (reversed pattern). Mild (1+) tricuspid valve insufficiency. Pulmonary artery systolic pressure is 35 mmHg. Ordering Physician: Alex Guerrero Referring Physician: NII LANGE Performed By: Janee Frias RDCS
== END ==
PROVIDERS: Family Provider Family Medicine; PCP Family Medicine; Visit Provider Internal Medicine Cardiovascular Disease
DX: R94.31 Abnormal electrocardiogram [ECG] [EKG] (principal)
CPT/HCPCS: 93306

== ENCOUNTER 2018-03-14 11:40 | Day surgery (SDC) | payer MEDICARE, OTHER, SELFPAY ==
[2018-02-08 14:05] VITALS: BP 102/66; PULSE 98; RESP 16; TEMP 36.7; O2SAT 97; BMI 34.7
--- NOTE | 2018-02-08 14:31 | SDCEKG_ITS ---
Test Reason : Blood Pressure : / mmHG Vent. Rate : 093 BPM Atrial Rate : 093 BPM P-R Int : 156 ms QRS Dur : 144 ms QT Int : 390 ms P-R-T Axes : 068 087 007 degrees QTc Int : 484 ms Normal sinus rhythm Right bundle branch block T wave abnormality, consider inferior ischemia Abnormal ECG Confirmed by NAPOLEON BARRERA ([id number]), order editor EMMANUEL SANTOS ([id number]) on 02/12/2018 1:37:42 PM Referred By: Pito Thompson Confirmed By:NAPOLEON BARRERA
[2018-03-14] VITALS (11 sets, daily range): BP systolic 110–137; BP diastolic 65–100; PULSE 61–90; RESP 16–18; TEMP 35.7–36.5; O2SAT 95–99; BMI 34.7
--- NOTE | 2018-03-14 13:15 | PROS_PTH ---
PATIENT: ROMARIO ROSS LOC: [facility] U#:[id number] AGE/SX: 67/M ROOM: RE03/14/[address]: Dr. Pito Thompson MD : [id number] BED: DIS: 03/15/2018 SPEC #: [id number] RECD: 03/15/18 11:52 STATUS: BEATRIZ RERichard #: [id number] JUD: 03/14/18 13:[address]: Pito Thompson DEPT: SURGICAL PATHOLOGY RECD BY: Josiah Murguia ENTERED: 03/15/18 11:52 SP TYPE: TURP OTHR DR: Dr. Terry Peralta MD Tissues: Prostate, NOS Procedures: Surgery Specimen Level IV HEADER OPERATION: Cystoscopy, TUR prostate PRE-OP DIAGNOSIS: BPH with obstruction TISSUE SUBMITTED: Prostate tissue MICROSCOPIC DIAGNOSIS Prostate, transurethral resection: Benign nodular hyperplasia, glandular and stromal type. Mild chronic inflammation. AM:[place] 03/20/18 MICROSCOPIC DESCRIPTION Slides are reviewed. GROSS DESCRIPTION Received is one container labeled with the patient's name and designated prostate tissue. The specimen consists of multiple irregular fragments of pink-callahan, rubbery, soft tissue that in aggregate weigh 13.6 gm and measure in aggregate 5 x 5 x 2.5 cm. Meat Pickler tissue is submitted in 12 cassettes. About 80% of the specimen is submitted. / SJ:[place] 03/15/18 TC:3 CPT: 53441
[2018-03-14] MEDS: Cefazolin 2 GM in 0.9% Normal Saline 100 ML IV (14:41)
--- NOTE | 2018-03-14 15:45 | PCM.OPRPT ---
Report of Operation Date of Procedure: 03/14/18 Pre-Operative Diagnosis: BPH with obstruction and urinary retention Post-Operative Diagnosis: Same Surgery/Procedure Performed:: Transurethral resection of the prostate with Olympus bipolar resectoscope Description of Surgical Findings:: 67-year-old male who had developed urinary retention was not able to void has failed several voiding trials and now presents to the hospital for transurethral resection of the prostate to hopefully restore normal voiding. We talked about the surgery. Risk of anesthesia. The risk of bleeding, infection, rare risk of injury to the urinary sphincter, risk of incontinence. In the risk of failure to restore normal normal voiding. After reviewing everything with the patient he got cardiac clearance before the surgery were going to proceed today. 67-year-old male taken back to the operating room after smooth induction of general anesthesia he was placed supine and then in dorsal lithotomy position the penis and testicles were prepped and draped in usual sterile fashion went into the bladder with a 26 Guatemalan continuous flow resectoscope with a 12? lens. I found a very large median lobe causing obstruction and lateral lobes that were kissing and causing obstruction. I then resected to the large resectoscope with bipolar resection and resected the median lobe I then resected all the way back to the verumontanum I resected the right lobe of the prostate and then resected the left lobe of the prostate resected very carefully at the apical and dome of the prostate and the 12 o'clock position and then came back to the sphincter identified the verumontanum identified ejaculatory ducts and then resected the apical tissue to have a nice open channel. I then Ellik out all the chips. Looked inside the bladder there were no more chips pulled back in the sphincter sphincter was still intact to the flow Test and had a wide open flow and then look back in the bladder. I then put a 22 Guatemalan catheter into the bladder on continuous bladder irrigation the urine was nice and clear the patient's anesthetic is currently being reversed. Type of Anesthesia:: General Drains: 22 Fr. - Admit VTE Documentation VTE Present on Admission: No VTE Mechan Device Prophylaxis: SCD's VTE Pharm Prophylaxis ordered?: No Reason prophylaxis not ordered:: Treatment Not Indicated
[2018-03-14] MEDS: 0.9% Normal Saline 1,000 ML 75 ML IV (17:57)
[2018-03-14] MEDS: Tamsulosin HCl 0.4 MG Capsule PO (21:43)
[2018-03-14] MEDS: Docusate Sodium 100 MG Capsule PO (21:43)
[2018-03-14] MEDS: Ciprofloxacin 500 MG Tablet PO (21:43)
[2018-03-15] MEDS: Acetaminophen 325 MG Tablet PO (01:10)
[2018-03-15 04:00] VITALS: BP 97/64; PULSE 66; RESP 18; TEMP 36.9; O2SAT 96
[2018-03-15 04:10] VITALS: PULSE 66
[2018-03-15] MEDS: 0.9% Normal Saline 1,000 ML 75 ML IV (06:48)
--- NOTE | 2018-03-15 07:26 | PCM.DC.URO ---
Discharge Diet: Light diet - advance as tolerated Discharge Activity: Return to Normal Activity Instructions: Transurethral Resection of the Prostate (TURP): Home Recovery Allergies/Adverse Reactions: Allergies No Known Allergies Allergy (Verified 03/07/18 12:54) Medications to take at Discharge Niacin 500 mg PO DAILY 01/23/18 Psyllium [Metamucil] 1 packet PO DAILY 01/23/18 Finasteride [Proscar] 5 mg PO DAILY #30 tab 01/25/18 Tamsulosin HCl [Flomax] 0.4 mg PO BID #60 cap 01/25/18 Ciprofloxacin [Cipro] 500 mg PO BID #14 tab 03/15/18 The following prescriptions were given: Ciprofloxacin [Cipro] 500 mg PO BID #14 tab Primary Care Physician: Terry Peralta MD [Primary Care Provider] - Please Follow Up With: Pito Thompson MD When: MondayMarch 29 at 2:30 pm
[2018-03-15 08:06] VITALS: BP 103/62; PULSE 75; RESP 18; TEMP 36.6; O2SAT 96
--- NOTE | 2018-03-15 08:27 | NURSING ---
spoke with Dr. Thompson- states okay to phone in pt script for Cipro to pt pharmacy- pt requested [facility]- said nurse spoke with [facility] Pharmacist and phoned in script for cipro 500mg po bid quantity [address] Thompson.
--- NOTE | 2018-03-15 09:26 | CASEMGMT ---
Intro role of CM to patient and his . Pt plans to return home today. May has been removed, per nursing has not voided yet. and pt are aware of f/u with urology and are hoping not to need may on dc. No HHS were utilized prior to admission. Norma RAON RN ACM
[2018-03-15] MEDS: Docusate Sodium 100 MG Capsule PO (10:38)
[2018-03-15] MEDS: Tamsulosin HCl 0.4 MG Capsule PO (10:38)
[2018-03-15] MEDS: Ciprofloxacin 500 MG Tablet PO (10:38)
[2018-03-15] MEDS: Psyllium 1 PACKET PO (10:39)
[2018-03-15] MEDS: Pantoprazole Sodium 40 MG Tablet PO (10:39)
[2018-03-15] MEDS: Ibuprofen 600 MG Tablet PO (10:39)
[2018-03-15] MEDS: Finasteride 5 MG Tablet PO (10:39)
[2018-03-15] MEDS: oxyCODONE 5 MG Tablet PO (10:40)
--- NOTE | 2018-03-15 12:47 | CHAPLAIN ---
Type of Pastoral Visit _x__ Initial Visit ___ Follow-up Visit ___ On-call Visit ___ General Patient Visit ___ Spiritual Assessment ___ Family Conference ___ Bereavement ___ Rapid Response ___ Code Blue ___ Other (describe below) Pastoral Care Referral From _x__ Patient ___ Family ___ Nurse ___ Physician ___ Radiology Practitioner Assistant ___ Channel Layer ___ Other (describe below) Sacrament/Intervention _x__ Active listening ___ Anointing ___ Yazidism ___ Bereavement ___ Communion _x__ Radha exploration ___ ___ Life review _x__ Prayer ___ Reconciliation ___ Sacrament of Sick ___ Supportive presence ___ Wedding ___ Other (describe below) Pastoral Comments
== END 2018-03-15 07:27 | disposition home or self-care (01) ==
LOC: SDC 11:42 → AC 11:43 → MS2 03-15 10:33
PROVIDERS: Family Provider Family Medicine; PCP Family Medicine; Visit Provider Urology
PROC: (CPT 52630; principal; 2018-03-14 13:05)
DX: N40.1 Benign prostatic hyperplasia with lower urinary tract symptoms (principal); N41.1 Chronic prostatitis; R33.8 Other retention of urine; N39.0 Urinary tract infection, site not specified; J40 Bronchitis, not specified as acute or chronic; J18.9 Pneumonia, unspecified organism; I45.10 Unspecified right bundle-branch block
CPT/HCPCS: 52630; 88305; J7030; J7120; J2405

== ENCOUNTER 2019-05-12 04:16 | Emergency (ER) | payer MEDICARE, OTHER, SELFPAY ==
[2019-05-12 04:16] VITALS: BP 117/80; PULSE 79; RESP 20; TEMP 36.9; O2SAT 94; BMI 38.0
--- NOTE | 2019-05-12 04:23 | CT_ITS ---
STUDY: CT ABDOMEN AND PELVIS WITHOUT CONTRAST REASON FOR EXAM: Male, 69 years old. Left flank pain x2 days, history of hernia repair interpreted 03/14/2018. RADIATION DOSAGE (If Supplied By Facility): CTDIvol = ( 18.58 ) mGy, DLP = ( 989.01 ) mGycm TECHNIQUE: Transaxial 5 mm images were obtained from the dome of the diaphragm to the symphysis pubis without oral contrast, and without intravenous contrast. Sagittal and coronal images were reconstructed. This examination is limited for the evaluation of gastrointestinal, solid organs and vascular structures due to the lack of intravenous and oral contrast. Individualized dose optimization techniques were used for this CT. COMPARISON: CT abdomen pelvis dated the 2017 FINDINGS: Stable left chest wall deformity, per calcification, scarring with areas of hyperinflation felt to be chronic changes. There is coronary artery calcification. Normal liver. Normal gallbladder and extrahepatic biliary system. Normal spleen. Normal pancreas. Normal bilateral adrenal glands. There is stable perirenal stranding. There is no obstructive uropathy, obstructive renal or ureteral calculi. . Normal visualized stomach. Normal small intestine. There are stable few predominantly sigmoid colonic diverticula consistent with diverticulosis. There is non-visualization of the appendix. There is minimal hazy opacification of the proximal small bowel mesentery. There are no enlarged mesenteric lymph nodes. This appears slightly more pronounced compared to previous exam. There is atherosclerosis of the abdominal aorta, greater branches and pelvic arteries with an infrarenal fusiform aneurysm are 3.6 x 3.3 cm image 89 series 2. This measured 3.4 x 3.2 cm at the corresponding levels previously. Mild arteriomegaly of the common iliac arteries. 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 Decompressed urinary bladder. There is enlargement of the prostate gland. Central defect consistent with history. Normal abdominal wall. There are diffuse degenerative changes of the visualized lumbar spine. Remote healed left inferior ramus pubis and anterior column fracture. CT/Abdomen/Pelvis without Cont IMPRESSION: Mild increase of hazy mesenteric attenuation in the upper small bowel mesentery is of indeterminate clinical significance. There is no obstructive uropathy, obstructive renal or ureteral calculi. Minimal increase in size of the fusiform abdominal aortic aneurysm by 2 mm. No leak. Stable mild colonic diverticulosis, diffuse atherosclerosis, bilateral perirenal stranding, degenerative changes, postsurgical and posttraumatic changes and prostate enlargement. Electronically Signed: Zenaida López MD at 5:27 EDT , Service support ,
--- NOTE | 2019-05-12 04:26 | ED.VISSUMM ---
- ER Visit Summary Date of Service: 05/12/19 Chief Complaint: Left flank pain History of Present Illness: The patient is a 69 M presenting with left flank pain. Patient states this started 2 days ago. He has pain in his left lower back. He states it is worsened when he moves. He denies injury. Denies numbness or weakness. Denies bowel or bladder incontinence. Denies radiation to his legs. Denies hematuria or urinary complaints. Denies abdominal pain. Denies chest pain or shortness of breath. Denies other complaints. Physical Examination: Vitals are stable. Patient is afebrile. Alert no acute distress. HEENT exam is unremarkable. Neck is supple. Lungs are clear and equal bilaterally. Heart is regular rate and rhythm. Abdomen is soft nontender nondistended. No guarding or rebound Back: Left CVA tenderness Extremities are unremarkable. Skin is warm and dry. No rash No focal neurologic deficit. Normal strength and sensation Remainder of exam is unremarkable. Emergency Department Course and Treatment: Patient was given morphine, Zofran IV. CBC, chemistries unremarkable other than glucose 114, BUN 23. Urinalysis unremarkable. Patient states his pain is improved. He only has pain when he tries to move. He was given Valium p.o. Repeat abdominal exam continues to be soft and nontender. CT abdomen pelvis shows mild increase of hazy mesenteric attenuation in the upper small bowel mesentery is of indeterminate clinical significance. There is no obstructive uropathy, obstructive renal or ureteral calculi. Minimal increase in size of the fusiform abdominal aortic aneurysm by 2 mm. No leak. Stable mild colonic diverticulosis, diffuse atherosclerosis, bilateral perirenal stranding, degenerative changes, postsurgical and posttraumatic changes and prostate enlargement. On reevaluation, patient is resting comfortably. I suspect musculoskeletal etiology. He is given a prescription for short course of [place]. Advised to follow-up with his primary care physician. Advised return to ED for worsening complaints. Disposition: Discharge home Impression: Left flank pain This note was generated with Sapient dictation software. It may contain incorrect words, spelling, and punctuation that were not noted in review of the chart prior to signing ED Disposition - Plan for ED Patient: Instructions: ED Flank Pain Uncertain Cause Prescriptions: Hydrocodone Bitart/Apap 5-325 [[place] 5MG-325MG] 1 tablet PO Q6H PRN PRN 3 Days #10 tablet PRN Reason: Pain Referrals: Terry Peralta MD [Primary Care Provider] -
[2019-05-12] MEDS: Ondansetron 4 MG/2 ML Vial IV (04:40)
[2019-05-12] MEDS: 0.9% Normal Saline 1,000 ML 250 ML IV (04:40)
[2019-05-12] MEDS: Morphine 4 MG/ML Syringe IV (04:42)
[2019-05-12 04:52] LABS: Bacteria 0 SEEN /hpf (None Seen); Mucous, Urine 0 SEEN /hpf (<or=2+); Red Blood Cells-Urine 0 SEEN /hpf (0-5); Squamous Epithelial Cells - UA 0 SEEN /hpf (0-5); White Blood Cells 0 SEEN /hpf (0-5)
[2019-05-12 04:57] LABS: Absolute Lymphocyte Count 2.99 X10^3/ul (0.83-4.51); Absolute Neutrophil Count 5.7 X10^3/uL (2.0-7.7); Basophil# 0.06 X10^3/uL; Basophil% 0.6 % (0-1); Eosinophil# 0.34 X10^3/uL; Eosinophils% 3.4 % (0-5); Hematocrit 50.4 % (40-54); Lymphocyte # 2.99 X10^3/ul (4.0); Lymphocyte % 30.1 % (19-41); Mean Corp Hgb Conc 33.7 g/gl (32-36); Mean Corpuscular Hgb 29.8 pg (27.0-32.0); Mean Corpuscular Volume 88.4 fL (80-94); Monocyte# 0.81 X10^3/uL; Monocyte% 8.2 % (0-10); Neutrophil % 57.5 % (47-70); Platelet Count 225 K/mm3 (150-450); RBC Distribution Width CV 12.9 % (11.6-14.6); White Blood Count 9.9 K/mm3 (4.4-11.0)
[2019-05-12 05:04] LABS: POSITIVE COUNT NO; POSITIVE DIFFERENTIAL NO; POSITIVE MORPHOLOGY NO
[2019-05-12 05:09] LABS: Anion Gap 7 (5-15); BUN 23 mg/dL (7-18); BUN/Creat Ratio 21.3 RATIO (10-20); Calcium,Total 9.3 mg/dL (8.5-10.1); Chloride 106 mmol/L (98-107); Creatinine, Serum 1.08 mg/dL (0.70-1.30); EST Glomerular Filtration Rate 72 mL/min (>60); Est Glom Filt Rate - Afr Amer 87 mL/min (>60); Estimated Creatinine Clearance 56.61 ml/min; Glucose 114 mg/dL (74-106); Potassium 4.1 mmol/L (3.5-5.1); Sodium Level 139 mmol/L (136-145)
[2019-05-12 05:28] LABS: Color, Urine Yellow (Yellow); Glucose, Dipstick Normal (Normal); Ketone-Dipstick Negative (Negative); Leukocyte Esterase-Dipstick 25 /ul (Negative); Nitrite-Dipstick Negative (Negative); Occult Blood-Urine Negative /ul (Negative); Protein-Dipstick Negative (Negative); Specific Gravity, Urine 1.015 (1.002-1.030); Urine Bilirubin Dipstick Negative (Negative); Urine Clarity Clear (Clear); Urine Urobilinogen Normal (Normal)
[2019-05-12] MEDS: diazePAM 5 MG Tablet 2.5 MG PO (05:58)
--- NOTE | 2019-05-12 06:26 | DCINST.ED_ITS ---
ED Disposition - Plan for ED Patient: Instructions: ED Flank Pain Uncertain Cause Prescriptions: Hydrocodone Bitart/Apap 5-325 [[place] 5MG-325MG] 1 tablet PO Q6H PRN PRN 3 Days #10 tablet PRN Reason: Pain Referrals: Terry Peralta MD [Primary Care Provider] -
[2019-05-12 06:52] VITALS: BP 108/85; PULSE 73; RESP 18; O2SAT 94
== END 2019-05-12 06:53 | disposition home or self-care (01) ==
LOC: ED 04:43
PROVIDERS: Emergency Provider Emergency Medicine; Family Provider Family Medicine; PCP Family Medicine
DX: R10.9 Unspecified abdominal pain (principal); K21.9 Gastro-esophageal reflux disease without esophagitis; E78.00 Pure hypercholesterolemia, unspecified; I71.4 Abdominal aortic aneurysm, without rupture; K57.30 Diverticulosis of large intestine without perforation or abscess without bleeding; M54.5 Low back pain
CPT/HCPCS: 74176; 80048; 81001; 85025; 96361; 96374; 96375; 99284; J7030; J2405

== ENCOUNTER 2024-03-15 08:32 | Emergency (ER) | payer MEDICARE, OTHER, SELFPAY ==
[2024-03-15] VITALS (7 sets, daily range): BP systolic 140–163; BP diastolic 77–111; PULSE 80–91; RESP 16–22; TEMP 36–36.1; O2SAT 88–93
--- NOTE | 2024-03-15 09:15 | RAD_ITS ---
STUDY: X-RAY CHEST REASON FOR EXAM: Male, 73 years old. Hypoxia. Increased cough and shortness of breath. TECHNIQUE: PA and lateral views of the chest. COMPARISON: Comparison is made with prior study dated January 23, 2018. FINDINGS: EKG electrodes are seen. Mild increased markings in the lingular segment of the left upper lobe suggests some scarring. This is unchanged. The right lung is clear. There is no demonstrated pleural abnormality. Normal size heart. Normal mediastinum and gilma. Normal visualized pulmonary arteries. There is atherosclerotic calcification of the aortic arch with tortuosity. Normal visualized thoracic spine. Deformity and healed multiple left-sided rib fractures. This is unchanged. There is no demonstrated abnormality of the visualized soft tissue structures of the upper abdomen. RAD/Chest PA and Lateral IMPRESSION: Findings suggestive of scarring in the lingular segment of the left upper lobe. Stable appearance of the multiple healed left-sided rib fractures with a left thoracic deformity. Electronically Signed: Osmany Gill MD at 10:24 EDT ,
--- NOTE | 2024-03-15 09:16 | EKG12_ITS ---
Test Reason : SOB Blood Pressure : / mmHG Vent. Rate : 078 BPM Atrial Rate : 078 BPM P-R Int : 174 ms QRS Dur : 152 ms QT Int : 422 ms P-R-T Axes : 065 090 -25 degrees QTc Int : 481 ms Normal sinus rhythm Right bundle branch block T wave abnormality, consider inferolateral ischemia Abnormal ECG Confirmed by Devin Smart ([id number]), science editor MOHAN CHAPMAN ([id number]) on 03/18/2024 2:01:37 PM Referred By: Confirmed By:Devin Smart
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
[2024-03-15] MEDS: Ipratropium/Albuterol Sulfate 3 ML AMPUL.NEB INHALATION (09:25)
[2024-03-15] MEDS: Albuterol 2.5 MG/3 ML VIAL.NEB. INHALATION ×3 (09:25→09:43)
[2024-03-15 09:33] LABS: Absolute Lymphocyte Count 1.14 X10^3/uL (0.83-4.51); Absolute Neutrophil Count 5.6 X10^3/uL (2.0-7.7); Basophil# 0.07 X10^3/uL; Basophil% 0.9 % (0-1); Eosinophil# 0.06 X10^3/uL; Eosinophils% 0.8 % (0-5); Hemoglobin 16.7 g/dL (13.0-16.5); Lymphocyte # 1.14 X10^3/ul (0.83-4.51); Lymphocyte % 14.4 % (19-41); Mean Corp Hgb Conc 32.1 g/dL (32-36); Mean Corpuscular Hgb 29.6 pg (27.0-32.0); Mean Corpuscular Volume 92.2 fL (80-94); Mean Platelet Vol. 9.7 fl (6.2-12.0); Monocyte# 1.01 X10^3/uL; Monocyte% 12.8 % (0-10); NRBC Flagged by Analyzer 0 % (0-5); Neutrophil # 5.58 X10^3/uL (2.7-7.7); Neutrophil % 70.7 % (47-70); Platelet Count 187 K/mm3 (150-450); RBC Distribution Width CV 12.8 % (11.6-14.6); RBC Distribution Width SD 43.4 fl (35.1-43.9); Red Blood Count 5.64 M/mm3 (4.6-6.2); White Blood Count 7.9 K/mm3 (4.4-11.0)
[2024-03-15] MEDS: MethylPREDNISolone 125 MG/2 ML Vial IV (09:40)
[2024-03-15 09:56] LABS: Anion Gap 10 (5-15); BUN 19 mg/dL (7-18); BUN/Creat Ratio 18.4 RATIO (10-20); Calcium,Total 9.5 mg/dL (8.5-10.1); Chloride 99 mmol/L (98-107); Creatinine, Serum 1.03 mg/dL (0.70-1.30); EST Glomerular Filtration Rate 75 mL/min (>60); Est Glom Filt Rate - Afr Amer 90 mL/min (>60); Glucose 95 mg/dL (74-106); Potassium 4.5 mmol/L (3.5-5.1); Sodium Level 136 mmol/L (136-145)
== END 2024-03-15 12:15 | disposition home or self-care (01) ==
PROVIDERS: Emergency Provider Emergency Medicine; PCP Family Medicine; Visit Provider Emergency Medicine
DX: J06.9 Acute upper respiratory infection, unspecified (principal); R09.02 Hypoxemia; E78.5 Hyperlipidemia, unspecified; K21.9 Gastro-esophageal reflux disease without esophagitis
CPT/HCPCS: 71046; 80048; 85025; 87631; 93005; 94640; 96374; 99283